=== PATIENT | female | born 1965 | race Caucasian/White ===

== ENCOUNTER 2016-11-06 23:19 | Inpatient (IN) | payer MEDICARE, OTHER ==
[~2016-11-06] VITALS: Ht 154.9 cm; Wt 91.7 kg
[~2016-11-06 23:19] MED LIST: ACID1TAB14 PO; ALPR0.5T PO; AMOX1TAB11 PO; ATOR20TA PO; BISM1BAN TP; BUSP10TA PO; CLON1TAB3; COLL30OI TP; CYCL10TA2 PO; DIAZ5TAB PO; DICY10CA53 PO; DULO30CA2 PO; ESCI20TA; FLUC100T7 PO; GABA-587 PO; GABA100C6; HYDR2TAB13 PO; IV NORMAL SALINE 1000ML BAG 1,000 ML IV SCH; LEVO25TA2 PO; LEVO50TA5; LITH300C; LORA1TAB PO; LOSA50TA2 PO; METH10TA2 PO; MORP15TA3 PO; NYST60PO TP; ONDA4TAB10 SL; OXYC15TA60; OXYC30TA64 PO; OXYC40TA21 PO; OXYC5TAB PO; PRAM0.25; PREG75CA PO; PROAIR HFA8.5 GM IH; QUET200T; RANI300T3 PO; SERT50TA8; TRAM50TA; VENL150T PO; ZALE10CA16 PO; ZOLP10TA4; ZOLP5TAB PO
--- NOTE | 2016-11-06 23:56 | PHYS DOC ---
Past Medical History Past Medical History: Pneumonia, Other Additional Past Medical Histor: Nonhogkins lymphoma, lumber fracture and skull fracture Past Surgical History: Appendectomy, Cholecystectomy, Tonsillectomy Additional Past Surgical Histo: laparoscapy, L. leg amputation,spikes in R.foot ,RT FEM/POP LYMPTH NODE BX Alcohol Use: None Drug Use: None Adult General Chief Complaint Chief Complaint: NAUSEA/VOMITING/DIARRHA HPI HPI Patient is a 51 year old female who presents with shortness of breath, diarrhea , abdominal pain. Patient reports her last 4-5 days she has been having shortness of breath, diarrhea, right lower quadrant pain, sore throat, problems with her memory. She reports frequent diarrhea, so much so that she is unable to get out of bed to get to the bathroom (so she has been sitting in her stool at home). She describes an aching right lower quadrant pain without clear inciting or mitigating factors. She is short of breath, but denies any chest discomfort. She has been taking amoxicillin home after being diagnosed with pneumonia. She has not taken anything for pain at home. Review of Systems Review of Systems Constitutional: Denies fever or chills Eyes: Denies change in visual acuity or eye pain HENT: Sore throat Respiratory: Shortness of breath Cardiovascular: Denies chest pain GI: RLQ pain, nausea, diarrhea. Denies vomiting, bloody stools : Denies dysuria or hematuria Musculoskeletal: Denies back pain or joint pain Integument: Denies rash or skin lesions Neurologic: Memory problems. Denies headache, focal weakness or sensory changes Current Medications Current Medications Current Medications Medications (Trade) Dose Ordered Sig/Alda Start Time Stop Time Status Last Admin Dose Admin Famotidine (Pepcid) 20 mg 1X ONCE 11/07/16 00:15 11/07/16 00:16 DC 11/07/16 01:37 20 MG Info (Do NOT chart on this entry -- for MONITORING) 1 each PRN DAILY PRN 11/07/16 02:00 11/09/16 01:59 Iohexol 60 ml 60 ml 1X ONCE 11/07/16 01:45 11/07/16 01:46 DC Morphine Sulfate 4 mg 1X ONCE 11/07/16 00:15 11/07/16 00:16 DC 11/07/16 01:37 4 MG Ondansetron HCl (Zofran) 4 mg 1X ONCE 11/07/16 00:15 11/07/16 00:16 DC 11/07/16 01:37 4 MG Sodium Chloride (Iv Sodium Chloride 0.9% 1000ml Bag) 1,000 ml @ 1,000 mls/hr 1X ONCE 11/07/16 01:45 11/07/16 02:44 DC 11/07/16 01:46 1,000 MLS/HR Allergies Allergies Allergies Coded Allergies Type Severity Reaction Last Updated Verified acetaminophen Allergy Intermediate Itching 10/02/16 Yes doxycycline Allergy Intermediate Itching 02/02/14 Yes Physical Exam Physical Exam Constitutional: Well developed, well nourished, no acute distress, non-toxic appearance HENT: Normocephalic, atraumatic, bilateral external ears normal Eyes: EOMI, conjunctiva normal, no discharge Neck: Normal range of motion, no stridor Cardiovascular: Tachycardic, regular rhythm, no murmur Lungs & Thorax: Bilateral breath sounds clear to auscultation Abdomen: Bowel sounds normal, soft, non-distended, RLQ TTP without guarding or rebound Groin: R groin without significant erythema or warmth to touch Skin: Warm, dry, no erythema, no rash Extremities: L AKA noted, L hand paralyzed (baseline) Neurologic: Alert and oriented X 3 Current Patient Data Vital Signs Vital Signs Date Time Temp Pulse Resp B/P Pulse Ox O2 Delivery O2 Flow Rate FiO2 11/07/16 01:37 98 Room Air 11/06/16 23:25 98.3 104 12 118/71 98.3 Lab Values Laboratory Tests Test 11/06/16 01:33 11/07/16 00:20 Urine Collection Type U cath Urine Color Yellow Urine Clarity Clear Urine pH 6.0 Urine Specific [place] 1.020 Urine Protein Negativemg/dL (NEG-TRACE) Urine Glucose (UA) Negativemg/dL (NEG) Urine Ketones (Stick) Negativemg/dL (NEG) Urine Blood Small (NEG) Urine Nitrite Negative (NEG) Urine Bilirubin Negative (NEG) Urine Urobilinogen Dipstick 0.2mg/dL (0.2 mg/dL) Urine Leukocyte Esterase Small (NEG) Urine RBC 3-5/HPF (0-2) Urine WBC 5-10/HPF (0-4) Urine Squamous Epithelial Cells Few/LPF Urine Bacteria 0/HPF (0-FEW) Urine Mucus Mod/LPF White Blood Count 4.8x10^3/uL (4.0-11.0) Red Blood Count 4.03x10^6/uL (3.50-5.40) Hemoglobin 12.1g/dL (12.0-15.5) Hematocrit 37.0% (36.0-47.0) Mean Corpuscular Volume 92fL (79-100) Mean Corpuscular Hemoglobin 30pg (25-35) Mean Corpuscular Hemoglobin Concent 33g/dL (31-37) Red Cell Distribution Width 14.9% (11.5-14.5) H Platelet Count 350x10^3/uL (140-400) Neutrophils (%) (Auto) 59% (31-73) Lymphocytes (%) (Auto) 21% (24-48) L Monocytes (%) (Auto) 15% (0-9) H Eosinophils (%) (Auto) 4% (0-3) H Basophils (%) (Auto) 2% (0-3) Neutrophils # (Auto) 2.8x10^3uL (1.8-7.7) Lymphocytes # (Auto) 1.0x10^3/uL (1.0-4.8) Monocytes # (Auto) 0.7x10^3/uL (0.0-1.1) Eosinophils # (Auto) 0.2x10^3/uL (0.0-0.7) Basophils # (Auto) 0.1x10^3/uL (0.0-0.2) Sodium Level 138mmol/L (136-145) Potassium Level 3.7mmol/L (3.5-5.1) Chloride Level 104mmol/L (98-107) Carbon Dioxide Level 30mmol/L (21-32) Anion Gap 4 (6-14) L Blood Urea Nitrogen 8mg/dL (7-20) Creatinine 1.1mg/dL (0.6-1.0) H Estimated GFR (Cockcroft-Gault) 52.2 BUN/Creatinine Ratio 7 (6-20) Glucose Level 97mg/dL (70-99) Calcium Level 9.3mg/dL (8.5-10.1) Total Bilirubin 0.2mg/dL (0.2-1.0) Aspartate Amino Transferase (AST) 45U/L (15-37) H Alanine Aminotransferase (ALT) 46U/L (14-59) Alkaline Phosphatase 125U/L (46-116) H Troponin I Quantitative < 0.017ng/mL (0.000-0.055) Total Protein 7.5g/dL (6.4-8.2) Albumin 2.9g/dL (3.4-5.0) L Albumin/Globulin Ratio 0.6 (1.0-1.7) L Lipase 54U/L (73-393) L Laboratory Tests 11/07/16 00:20 Laboratory Tests 11/07/16 00:20 EKG EKG EKG (my read): sinus rhythm, rate 98, normal axis, intervals wnl, no acute ischemic changes Radiology/Procedures Radiology/Procedures CT A/P: IMPRESSION 1. Soft tissue density within the right inguinal region surrounding multiple vascular closure devices or surgical clips and a small focus of gas. This suggests inflammation or scar/granulation tissue from recent catheterization. No drainable fluid collection is seen. However, the possibility of superimposed infection is not excluded given multiple prominent surrounding inguinal lymph nodes. 2. 1 cm round region of stranding adjacent to the mid sigmoid colon, possibly due to the sequela of prior epiploic appendagitis. 3. 7 mm left lower lobe pulmonary nodule, not seen on the prior study. Followup according to Fleischner society criteria. 4. Small fat containing supraumbilical hernias. 5. Note is made that the appendix is not well seen. CXR (my read): No significant change from prior 10/21/16 Course & Med Decision Making Course & Med Decision Making Pertinent Labs and Imaging studies reviewed. (See chart for details) Patient is 51-year-old female who presents with abdominal pain, diarrhea, shortness of breath. Will check labs, UA, CT abdomen/pelvis, C. difficile test. IV fluids, pain meds, nausea meds ordered for relief of symptoms. EKG and chest x-ray okay per my read. Labs largely unremarkable. CT results as above; although there is inflammation in the right groin, patient does not have fever or leukocytosis. Physical exam shows no gross signs of infection, so will not give antibiotics at this time. Discussed results with patient. Discussed with Dr. Toledo (covering for Dr. Zayas). Will admit under his care for further evaluation and treatment. Surgical consultation entered. Dragon Disclaimer Dragon Disclaimer This electronic medical record was generated, in whole or in part, using a voice recognition dictation system. Departure Departure Impression: Primary Impression: Abdominal pain Additional Impression: Diarrhea Disposition: 09 ADMITTED INPATIENT Admitting Physician: Tej Toledo Condition: STABLE Referrals: LENA ZAYAS MD (PCP) Problem Qualifiers SAAD FOSTER MD Nov 06, 2016 23:56
[2016-11-07] MEDS ORDERED: MORPHINE SULFATE 4 MG/ML DISP.SYRIN. IV ONE ×2 (00:15→04:00)
[2016-11-07] MEDS ORDERED: FAMOTIDINE 20 MG/2 ML VIAL IVP ONE (00:15)
[2016-11-07] MEDS ORDERED: ONDANSETRON PF 4 MG/2 ML VIAL. IV ONE (00:15)
[2016-11-07 00:30] LABS: BASO # 0.1 x10^3/uL (0.0-0.2); BASO % 2 % (0-3); EOS % 4 % (0-3); HEMOGLOBIN 12.1 g/dL (12.0-15.5); LYMPH % 21 % (24-48); MEAN CORPUSCULAR HEMOGLOBIN 30 pg (25-35); MEAN CORPUSCULAR HGB CONC 33 g/dL (31-37); MEAN CORPUSCULAR VOLUME 92 fL (79-100); MONO % 15 % (0-9); NEUT % 59 % (31-73); PLATELET COUNT 350 x10^3/uL (140-400); RED BLOOD COUNT 4.03 x10^6/uL (3.50-5.40); RED CELL DISTRIBUTION WIDTH 14.9 % (11.5-14.5); WHITE BLOOD COUNT 4.8 x10^3/uL (4.0-11.0)
[2016-11-07 00:40] LABS: CALCIUM 9.3 mg/dL (8.5-10.1); CREATININE 1.1 mg/dL (0.6-1.0); GFR 52.2; POTASSIUM 3.7 mmol/L (3.5-5.1)
[2016-11-07 00:46] LABS: ALBUMIN 2.9 g/dL (3.4-5.0); ALBUMIN/GLOBULIN RATIO 0.6 (1.0-1.7); TOTAL BILIRUBIN 0.2 mg/dL (0.2-1.0); TOTAL PROTEIN 7.5 g/dL (6.4-8.2)
[2016-11-07 01:43] LABS: BILIRUBIN,URINE NEGATIVE (NEG); GLUCOSE,URINE NEGATIVE (NEG); NITRITE,URINE NEGATIVE (NEG); PROTEIN,URINE NEGATIVE (NEG-TRACE); UROBILINOGEN,URINE 0.2 mg/dL (0.2 mg/dL)
[2016-11-07] MEDS: IOHEXOL 300 MG/ML 100ML VIAL. IV ONE ×2 (01:45→01:49)
[2016-11-07] MEDS ORDERED: IV NORMAL SALINE 1000ML BAG 1,000 ML IV ONE (01:45)
[2016-11-07 01:50] LABS: BACTERIA,URINE 0 /HPF (0-FEW); SQUAMOUS EPITHELIAL CELL,UR FEW /LPF
[2016-11-07] MEDS ORDERED: CONTRAST GIVEN MC PRN (02:00)
--- NOTE | 2016-11-07 02:33 | RAD ---
PROCEDURE Abdomen and pelvis CT without contrast. HISTORY Right lower quadrant pain. TECHNIQUE Computed tomographic images of the abdomen pelvis were obtained without contrast. One or more of the following individualized dose reduction techniques were utilized for this examination: 1. Automated exposure control; 2. Adjustment of the mA and/or kV according to patient size; 3. Use of iterative reconstruction technique. COMPARISON 05/31/2016. FINDINGS Evaluation of the lower thorax demonstrates a 7 mm left lower lobe pulmonary nodule, not seen on the prior study. There is no infiltrate or effusion. No hepatic lesion is seen. The gallbladder is surgically absent. The pancreas, spleen, adrenal glands and kidneys are unremarkable. There is a rounded 1 cm region of fatty stranding adjacent to the mid sigmoid colon, possibly due to the sequela of epiploic appendagitis. The uterus is unremarkable. There is a 1.9 cm soft tissue structure within the right lower quadrant which appears separate from bowel and is likely a lymph node. There are also enlarged right inguinal lymph nodes surrounding suspected scarring or granulation tissue and multiple vascular closure clips or surgical clips. There is a superimposed small focus of gas within this location likely due to relative recent instrumentation. No drainable fluid collection is seen. There are small supraumbilical fat containing hernias. No pathologically enlarged lymph node is seen. There is a generator within the right buttock with lead extending cephalad from the field of view. There is degenerative change within the thoracolumbar spine and there are multiple healed left rib fractures. IMPRESSION 1. Soft tissue density within the right inguinal region surrounding multiple vascular closure devices or surgical clips and a small focus of gas. This suggests inflammation or scar/granulation tissue from recent catheterization. No drainable fluid collection is seen. However, the possibility of superimposed infection is not excluded given multiple prominent surrounding inguinal lymph nodes. 2. 1 cm round region of stranding adjacent to the mid sigmoid colon, possibly due to the sequela of prior epiploic appendagitis. 3. 7 mm left lower lobe pulmonary nodule, not seen on the prior study. Followup according to Fleischner society criteria. 4. Small fat containing supraumbilical hernias. 5. Note is made that the appendix is not well seen. Electronically signed by: Luann Hargrove (Nov 07, 2016 02:30:03)
[2016-11-07] MEDS ORDERED: ONDANSETRON PF 4 MG/2 ML VIAL. IV PRN (04:00)
[2016-11-07] MEDS ORDERED: MORPHINE SULFATE 4 MG/ML DISP.SYRIN. IV PRN (04:00)
[2016-11-07 04:53] VITALS: BP 164/74
--- NOTE | 2016-11-07 06:45 | EKG ---
[facility] [address] [place] [address] Test Date: 2016-11-07 Test Time: 00:03:59 Pat Name: CORI ZUNIGA Department: Room: [facility] Gender: F Set Decorator: : 1965 Requested By: SAAD FOSTRE Order Number: [id number] Reading MD: Zuleima Gage Measurements Intervals [place] Rate: 98 P: 42 AR: 158 QRS: 35 QRSD: 88 T: 29 QT: 352 QTc: 451 Interpretive Statements SINUS RHYTHM NORMAL EKG Electronically Signed On 11-08-2016 0:28:30 [employer] SHE[employer]ING [employer] by Zuleima Gage
[2016-11-07 07:00] VITALS: BP 85/59
[2016-11-07] MEDS ORDERED: ONDANSETRON ODT 4 MG TAB.RAPDIS PO PRN (07:45)
--- NOTE | 2016-11-07 07:50 | PDOC ---
Provider Note Provider Note [id number] AGNES FOSTER MD Nov 07, 2016 07:50
--- NOTE | 2016-11-07 07:53 | RAD ---
Indication shortness of breath. A single view of the chest was obtained and is compared to an examination 10/21/2016. The heart and pulmonary vessels are within normal limits and unchanged. A focal infiltrate is not seen. Significant pleural fluid is not present. There is no pneumothorax. Neuro stimulating device is noted. A significant change in the appearance of the chest compared to the prior exam is not seen. IMPRESSION: No acute or focal process. No significant change
[2016-11-07] MEDS: NYSTATIN TOPICAL POWDER 15GM BOTTLE. TP SCH ×2 (09:00→20:37)
[2016-11-07] MEDS ORDERED: GABAPENTIN 400 MG CAPSULE. PO SCH (09:00)
[2016-11-07] MEDS ORDERED: LOSARTAN POTASSIUM 50 MG TABLET. PO SCH (09:00)
[2016-11-07] MEDS: FAMOTIDINE 20 MG TABLET. PO SCH ×2 (09:19→20:37)
[2016-11-07] MEDS: METRONIDAZOLE 500 MG TABLET. PO SCH ×4 (09:19→20:45)
[2016-11-07] MEDS: OXYCODONE ER 40 MG TAB.ER.12H. PO SCH ×2 (09:20→20:42)
[2016-11-07] MEDS: PREGABALIN 75 MG CAPSULE PO SCH ×3 (09:21→20:42)
[2016-11-07] MEDS: DULOXETINE HCL 30 MG CAPSULE.DR. PO SCH (09:21)
[2016-11-07] MEDS: busPIRone 10 MG TABLET. PO SCH ×3 (09:21→20:37)
[2016-11-07] MEDS: POTASSIUM CL 20MEQ D5-0.45NACL 1,000 ML IV SCH ×2 (09:26→20:44)
--- NOTE | 2016-11-07 09:48 | HP ---
ADMIT DATE: CHIEF COMPLAINT: Vomiting and diarrhea. HISTORY OF PRESENT ILLNESS: A 51-year-old white female who has been the hospital about 5 days after a prolonged stay for right inguinal area cellulitis and lymph drainage after a biopsy. This required catheter drainage and ultimately catheter was removed and she went home on Augmentin. About 2 days prior to this admission, she developed nausea, vomiting, and diarrhea of nonbloody in nature without obvious fever or any other specific symptoms. CT scan of the abdomen was unremarkable on admission. C. diff toxin is pending at this time. PAST MEDICAL HISTORY: Well documented in old records. MEDICATIONS: Multiple medications listed per the chart. ALLERGIES: DOXYCYCLINE noted. SOCIAL HISTORY: Lives at home and is , nonsmoker, nondrinker to my knowledge and is not employed. FAMILY HISTORY: Unremarkable. REVIEW OF SYSTEMS: No other known problems. OBJECTIVE: ENT: No jaundice. Pharynx clear. Mucosa appeared to be moist. NECK: Revealed no carotid bruits, nodes, or thyroid enlargement. LUNGS: Clear, without tachypnea. CARDIOVASCULAR: Regular rate. No irregular beat or tachycardia. ABDOMEN: Obese, diffusely mildly tender. No guarding or rebound or masses felt. EXTREMITIES: Right inguinal area appears same as last exam, mild edema at the ankles, good pedal pulses. The left arm has reduced pulse consistent with complex regional pain syndrome, otherwise unremarkable. NEUROLOGIC: Very sleepy for medication, nonfocal. No overt neurologic findings. Gait was not tested. Cranial nerves appear to be intact. ASSESSMENT: Ongoing nausea, vomiting, and diarrhea while taking Augmentin after a prolonged IV antibiotic course in the hospital. Suspect this is either antibiotic-associated colitis or just Augmentin diarrhea as most likely diagnoses. PLAN: We will hold Augmentin and Flagyl pending C. diff toxin. IV fluids, bowel rest, and continue most medications same. AGNES FOSTER MD DR: EDEN/jordan JOB#: [id number] / [id number]
[2016-11-07 11:00] VITALS: BP 85/50
[2016-11-07] MEDS: LEVOTHYROXINE 50 MCG TABLET PO SCH (11:09)
[2016-11-07] MEDS: OXYCODONE IR 5 MG TABLET. PO PRN (13:43)
[2016-11-07 15:00] VITALS: BP 85/54
--- NOTE | 2016-11-07 16:01 | PDOC ---
Provider Note Provider Note SURG Carla is admitted with diarrhea. We are asked to see her for her hx of right groin cellulitis/seroma after a right inguinal LN biopsy 2/2 hx of lymphoma. The nodes were negative for neoplasia. Her percutaneously placed drain was removed by me in the office last week. Examine today does not suggest recurrent erythema, fluctuance or TTP. No acute surg recs Will follow as needed Thanks for letting us participate in her care BREANNA MERCADO MD Nov 07, 2016 16:01
[2016-11-07 19:49] VITALS: BP 100/61
[2016-11-07] MEDS: PRAMIPEXOLE 0.25 MG TABLET. PO SCH (20:37)
[2016-11-07] MEDS: ZOLPIDEM 5 MG TABLET. PO PRN (20:44)
[2016-11-07 22:35] VITALS: BP 95/65
[2016-11-08] MEDS: PREGABALIN 75 MG CAPSULE PO SCH ×4 (02:08→20:26)
[2016-11-08] MEDS: OXYCODONE IR 5 MG TABLET. PO PRN ×3 (02:08→21:31)
[2016-11-08 02:41] VITALS: BP 98/69
[2016-11-08 04:15] LABS: BASO # 0.1 x10^3/uL (0.0-0.2); BASO % 2 % (0-3); EOS % 5 % (0-3); HEMATOCRIT 37.5 % (36.0-47.0); HEMOGLOBIN 12.1 g/dL (12.0-15.5); LYMPH # 1.2 x10^3/uL (1.0-4.8); LYMPH % 38 % (24-48); MEAN CORPUSCULAR HEMOGLOBIN 30 pg (25-35); MEAN CORPUSCULAR HGB CONC 32 g/dL (31-37); MEAN CORPUSCULAR VOLUME 92 fL (79-100); MONO % 19 % (0-9); NEUT % 35 % (31-73); PLATELET COUNT 327 x10^3/uL (140-400); RED BLOOD COUNT 4.06 x10^6/uL (3.50-5.40); RED CELL DISTRIBUTION WIDTH 14.9 % (11.5-14.5)
[2016-11-08 04:34] LABS: CALCIUM 8.6 mg/dL (8.5-10.1); GFR 58.2; POTASSIUM 4.5 mmol/L (3.5-5.1)
[2016-11-08] MEDS: LEVOTHYROXINE 50 MCG TABLET PO SCH (06:36)
[2016-11-08 07:00] VITALS: BP 104/67
[2016-11-08] MEDS: IPRATRPIUM/ALBUTEROL 0.5/2.5MG 3 ML NEBU. NEB SCH ×4 (08:00→19:19)
--- NOTE | 2016-11-08 08:02 | PDOC ---
Provider Note Provider Note afeb, bp still low- diarhea gone off augmentin, c diff neg- now cough and diffuse wheezes, clear cxr/ is a smoker- will add solumedrol/ duoneb, culture sputum if available, hold po antibiotics for now as she was on augmentin whern cough developed- hold losartan re lower bp AGNES FOSTER MD Nov 08, 2016 08:01
[2016-11-08] MEDS: NYSTATIN TOPICAL POWDER 15GM BOTTLE. TP SCH ×2 (09:00→20:29)
[2016-11-08] MEDS: methylPREDNISolone SOD SUCC PF 40 MG/ML VIAL. IV SCH ×2 (09:01→20:29)
[2016-11-08] MEDS: FAMOTIDINE 20 MG TABLET. PO SCH ×2 (09:03→20:26)
[2016-11-08] MEDS: DULOXETINE HCL 30 MG CAPSULE.DR. PO SCH (09:03)
[2016-11-08] MEDS: busPIRone 10 MG TABLET. PO SCH ×3 (09:04→20:26)
[2016-11-08] MEDS: OXYCODONE ER 40 MG TAB.ER.12H. PO SCH ×2 (09:04→20:28)
--- NOTE | 2016-11-08 09:37 | ACF ---
Admission Forms Criteria ABDOMINAL PAIN Clinical Indications for Admission to Inpatient Care (Place 'X' for any and all applicable criteria): Admission is indicated for ANY ONE of the following(1)(2)(3)(4)(5): [ X]I. Inpatient admission required rather than observation care (Also use Abdominal Pain: Observation Care, as appropriate) because of ANY ONE of the following: [X ]a) Severe pain requiring acute inpatient management [X ]b) Identification of etiology/finding that requires inpatient care (eg, aortic dissection, free air) [ ]c) Absent bowel sounds with complete ileus(6) [ ]d) Suspected toxic megacolon [ ]e) Severe electrolyte abnormalities requiring inpatient care [ ]f) High fever or infection requiring inpatient admission as indicated by ANY ONE of following(7)(8): [ ] i) Appropriate outpatient or observational care antimicrobial treatment unavailable, not effective, or not feasible [ ] ii) Documented bacteremia [ ] iii) Temperature > 104.9 degrees F (oral) [ ] iv) T >103.1 F (oral) or < 96.8 F(rectal) that does not respond to all emergency treatment measures [ ]g) Signs of intestinal obstruction [B] [ ]h) Hemodynamic instability [ ]i) IV fluid to replace significant ongoing losses (greater than 3 L/m2 per day) (12)(13) [ ]j) Percutaneous or open drainage (eg, abscess, biliary tract ) procedures [ ]k) Parenteral nutrition regimen that must be implemented on inpatient basis [ ]l) Other condition,treatment or monitoring requiring inpatient admission. [ ]II. Peritoneal signs present [ ]III. Surgery needed that cannot be performed on an ambulatory basis. [ ]IV. Evaluation requires patient to not eat or drink for extended period ( eg, more than 24 hours). [ ]V. Contraindications and/or Inappropriate clinical situations for Observational Care in patients with abdominal pain, when ANY ONE of the following is required: [ ]a) Thorough evaluation is required to prevent catastrophic events due to delays in diagnosing (e.g.Mesenteric ischemia) 1,3 [ ]b) Patient with severe pathology or with chronic symptoms unlikely to improve in the ED stay (3) [ ]. General contraindications and/or Inappropriate clinical situations for Observational Care in patients with abdominal pain, when ANY ONE of the following is required: [ ]a) Prediction of prolongation of LOS based on ANY ONE of the following may be considered as a contraindication for observational care 2, 3, 4, 5, 6, 7, 8, 9, 10, 11 [ ]i) Age > 65 yrs. [ ]ii) Patient arriving by ambulance [ ]iii) Patient with high acuity [ ]iv) Patient requiring vital sign monitoring [ ]v) Patient on IV medication [ ]b) Systolic blood pressures 180mmHg 3,12 [ ]c) Patient with altered mental status including delirium and other alteration of consciousness, (3) [ ]d) Patient whose discharge disposition will be to a care home home or rehabilitation home should not be managed in Emergency Department Observation Unit. CMS rule requires 3 days hospital stay before such placement.3,13 [ ]e) Patient with failure to thrive due to broad array of etiologies 3,16,17 [ ]f) Inability to ambulate 3,14 Extended stay beyond goal length of stay may be needed for(2)(3): [ ]a) Persistent abdominal pain with suspected intra-abdominal process [ ]b) Diagnosed condition requiring continued stay (e.g., pancreatitis, complicated diverticulitis) [ ]c) Surgery (e.g., colectomy) The original [facility] content created by [employer] has been revised. The portions of the content which have been revised are identified through the use of italic text or in bold, and [facility] has neither reviewed nor approved the modified material.All other unmodified content is copyright [employer]. Please see references footnoted in the original [facility] edition 2016 Admission Criteria Met?: Yes DESI PRADHAN Nov 08, 2016 09:37
[2016-11-08 11:00] VITALS: BP 98/75
[2016-11-08] MEDS: ALPRAZOLAM 0.5 MG TABLET PO PRN ×2 (13:24→20:26)
[2016-11-08 15:00] VITALS: BP 132/86
[2016-11-08 19:40] VITALS: BP 154/89
[2016-11-08] MEDS: PRAMIPEXOLE 0.25 MG TABLET. PO SCH (20:26)
[2016-11-08] MEDS: ZOLPIDEM 5 MG TABLET. PO PRN (21:31)
[2016-11-08 22:40] VITALS: BP 115/72
[2016-11-08] MEDS: BENZONATATE 100 MG CAPSULE. PO SCH (23:16)
[2016-11-09 03:00] VITALS: BP 128/82
[2016-11-09] MEDS: IPRATRPIUM/ALBUTEROL 0.5/2.5MG 3 ML NEBU. NEB SCH ×4 (06:08→20:09)
[2016-11-09] MEDS: OXYCODONE IR 5 MG TABLET. PO PRN ×3 (06:17→22:20)
[2016-11-09] MEDS: LEVOTHYROXINE 50 MCG TABLET PO SCH (06:17)
[2016-11-09 07:05] VITALS: BP 137/89
[2016-11-09] MEDS: NYSTATIN TOPICAL POWDER 15GM BOTTLE. TP SCH ×2 (09:00→21:06)
[2016-11-09] MEDS: FAMOTIDINE 20 MG TABLET. PO SCH ×2 (09:13→21:05)
[2016-11-09] MEDS: busPIRone 10 MG TABLET. PO SCH ×3 (09:13→21:05)
[2016-11-09] MEDS: BENZONATATE 100 MG CAPSULE. PO SCH ×3 (09:14→21:05)
[2016-11-09] MEDS: DULOXETINE HCL 30 MG CAPSULE.DR. PO SCH (09:14)
[2016-11-09] MEDS: OXYCODONE ER 40 MG TAB.ER.12H. PO SCH ×2 (09:14→21:05)
[2016-11-09] MEDS: methylPREDNISolone SOD SUCC PF 40 MG/ML VIAL. IV SCH ×2 (09:15→21:05)
[2016-11-09] MEDS: PREGABALIN 75 MG CAPSULE PO SCH ×3 (09:15→21:06)
--- NOTE | 2016-11-09 09:20 | PDOC ---
SUBJECTIVE Subjective c/o urinary frequency, cough, less SOB, no fever OBJECTIVE Objective no wheezing, VSS Vital Signs Vital Signs Date Time Temp Pulse Resp B/P Pulse Ox O2 Delivery O2 Flow Rate FiO2 11/09/16 08:08 18 94 Room Air 11/09/16 07:05 97.9 75 18 137/89 94 Room Air 97.9 11/09/16 06:17 Room Air 11/09/16 06:08 98 Room Air 11/09/16 03:00 98.1 78 18 128/82 94 98.1 11/09/16 00:28 Room Air 11/08/16 22:40 98.1 109 18 115/72 96 Room Air 98.1 11/08/16 21:31 Room Air 11/08/16 20:28 Room Air 11/08/16 20:00 Room Air 11/08/16 19:40 98.3 79 20 154/89 96 Room Air 98.3 11/08/16 19:19 98 Room Air 11/08/16 16:38 Room Air 11/08/16 15:00 97.8 78 20 132/86 97 Room Air 97.8 11/08/16 14:49 97 11/08/16 13:26 97 Room Air 11/08/16 12:19 97 Room Air 11/08/16 11:00 98.0 76 20 98/75 96 Room Air 98.0 I & O Intake and Output 11/09/16 07:00 Intake Total 600 ml Output Total 1350 ml Balance -750 ml Intake Oral 600 ml Output Urine Total 1350 ml PHYSICAL EXAM Physical Exam lungs clear today heart RRR abd soft ext no edema R groin area clean and clear ASSESSMENT/PLAN Assessment/Plan breathing better , continue steroids, urinary frequency will check U/A , Problems: LENA ZAYAS MD Nov 09, 2016 09:20
[2016-11-09 10:22] LABS: BILIRUBIN,URINE NEGATIVE (NEG); GLUCOSE,URINE NEGATIVE (NEG); NITRITE,URINE NEGATIVE (NEG); PROTEIN,URINE NEGATIVE (NEG-TRACE); UROBILINOGEN,URINE 0.2 mg/dL (0.2 mg/dL)
[2016-11-09 10:39] LABS: BACTERIA,URINE FEW /HPF (0-FEW); SQUAMOUS EPITHELIAL CELL,UR FEW /LPF
[2016-11-09 11:07] VITALS: BP 122/81
[2016-11-09 14:46] VITALS: BP 146/95
[2016-11-09] MEDS: ALPRAZOLAM 0.5 MG TABLET PO PRN ×3 (16:31→22:20)
--- NOTE | 2016-11-09 18:17 | PDOC ---
PULMONARY PROGRESS NOTES Vitals Vital Signs Date Time Temp Pulse Resp B/P Pulse Ox O2 Delivery O2 Flow Rate FiO2 11/09/16 16:32 95 Room Air 11/09/16 14:46 97.3 88 18 146/95 97.3 Lungs: Clear Cardiovascular: S1, S2 Labs Laboratory Tests Test 11/08/16 04:05 11/09/16 10:06 White Blood Count 3.0x10^3/uL (4.0-11.0) Red Blood Count 4.06x10^6/uL (3.50-5.40) Hemoglobin 12.1g/dL (12.0-15.5) Hematocrit 37.5% (36.0-47.0) Mean Corpuscular Volume 92fL (79-100) Mean Corpuscular Hemoglobin 30pg (25-35) Mean Corpuscular Hemoglobin Concent 32g/dL (31-37) Red Cell Distribution Width 14.9% (11.5-14.5) Platelet Count 327x10^3/uL (140-400) Neutrophils (%) (Auto) 35% (31-73) Lymphocytes (%) (Auto) 38% (24-48) Monocytes (%) (Auto) 19% (0-9) Eosinophils (%) (Auto) 5% (0-3) Basophils (%) (Auto) 2% (0-3) Neutrophils # (Auto) 1.1x10^3uL (1.8-7.7) Lymphocytes # (Auto) 1.2x10^3/uL (1.0-4.8) Monocytes # (Auto) 0.6x10^3/uL (0.0-1.1) Eosinophils # (Auto) 0.2x10^3/uL (0.0-0.7) Basophils # (Auto) 0.1x10^3/uL (0.0-0.2) Sodium Level 142mmol/L (136-145) Potassium Level 4.5mmol/L (3.5-5.1) Chloride Level 107mmol/L (98-107) Carbon Dioxide Level 30mmol/L (21-32) Anion Gap 5 (6-14) Blood Urea Nitrogen 4mg/dL (7-20) Creatinine 1.0mg/dL (0.6-1.0) Estimated GFR (Cockcroft-Gault) 58.2 Glucose Level 103mg/dL (70-99) Calcium Level 8.6mg/dL (8.5-10.1) Urine Collection Type Unknown Urine Color Yellow Urine Clarity Clear Urine pH 7.0 Urine Specific [place] 1.015 Urine Protein Negativemg/dL (NEG-TRACE) Urine Glucose (UA) Negativemg/dL (NEG) Urine Ketones (Stick) Negativemg/dL (NEG) Urine Blood Small (NEG) Urine Nitrite Negative (NEG) Urine Bilirubin Negative (NEG) Urine Urobilinogen Dipstick 0.2mg/dL (0.2 mg/dL) Urine Leukocyte Esterase Negative (NEG) Urine RBC 11-20/HPF (0-2) Urine WBC 1-4/HPF (0-4) Urine Squamous Epithelial Cells Few/LPF Urine Bacteria Few/HPF (0-FEW) Urine Mucus Slight/LPF Laboratory Tests Test 11/09/16 10:06 Urine Collection Type Unknown Urine Color Yellow Urine Clarity Clear Urine pH 7.0 Urine Specific [place] 1.015 Urine Protein Negativemg/dL (NEG-TRACE) Urine Glucose (UA) Negativemg/dL (NEG) Urine Ketones (Stick) Negativemg/dL (NEG) Urine Blood Small (NEG) Urine Nitrite Negative (NEG) Urine Bilirubin Negative (NEG) Urine Urobilinogen Dipstick 0.2mg/dL (0.2 mg/dL) Urine Leukocyte Esterase Negative (NEG) Urine RBC 11-20/HPF (0-2) Urine WBC 1-4/HPF (0-4) Urine Squamous Epithelial Cells Few/LPF Urine Bacteria Few/HPF (0-FEW) Urine Mucus Slight/LPF Medications Active Scripts Medications Dose Route/Sig Days Date Category Nystop (Nystatin) 60 Gm Powder 1 Simone TP BID 10/31/16 Rx Diflucan (Fluconazole) 100 Mg Tablet 200 Mg PO DAILY 10/31/16 Rx Amox Tr-K Clv 875-125 Mg Tab (Amoxicillin/Potassium Clav) 1 Each Tablet 1 Tab PO BID 10/31/16 Rx Irina-Bid Caplet (Acidoph/L.bulg/Bif.b/S.thermop) 1 Each Tablet 1 Tab PO TIDWMEALS 10/31/16 Rx Zofran Odt (Ondansetron) 4 Mg Tab.rapdis 1 Tab SL Q8HRS 10/11/16 Rx Lyrica (Pregabalin) 75 Mg Capsule 150 Mg PO TID 30 10/07/16 Rx Oxycodone Hcl 5 Mg Tablet 15 Mg PO Q4-6HRS PRN 15 10/07/16 Rx Oxycontin (Oxycodone HCl) 40 Mg Tab.er.12h 40 Mg PO Q12HR 15 10/07/16 Rx Cozaar (Losartan Potassium) 50 Mg Tablet 100 Mg PO DAILY 30 10/07/16 Rx Gabapentin 400 Mg Capsule 800 Mg PO TID 30 10/07/16 Rx Cymbalta (Duloxetine Hcl) 30 Mg Capsule.dr 60 Mg PO DAILY 30 10/07/16 Rx Buspirone Hcl 10 Mg Tablet 10 Mg PO TID 30 10/07/16 Rx Bentyl (Dicyclomine Hcl) 10 Mg Capsule 1 Cap PO Q8HRS PRN 06/13/16 Rx Zantac (Ranitidine Hcl) 300 Mg Tablet 1 Tab PO QHS 06/13/16 Rx Levothyroxine Sodium 50 Mcg Tablet 01/11/16 Reported Clonazepam 1 Mg Tablet 01/11/16 Reported Tramadol Hcl 50 Mg Tablet 01/11/16 Reported Pramipexole Dihydrochloride (Pramipexole Di-Hcl) 0.25 Mg Tablet 01/11/16 Reported Quetiapine Fumarate 200 Mg Tablet 01/11/16 Reported [place] Carbonate 300 Mg Capsule 01/11/16 Reported Proair Hfa Inhaler (Albuterol Sulfate) 8.5 Gm Hfa.aer.ad 2 Puff IH PRN Q4-6HRS 07/11/14 Rx Xanax (Alprazolam) 0.5 Mg Tablet 0.5 Mg PO TID PRN PRN 05/24/14 Reported Venlafaxine Hcl Er (Venlafaxine Hcl) 150 Mg Tab.er.24 150 Mg PO DAILY 05/24/14 Reported Ambien (Zolpidem Tartrate) 5 Mg Tablet 5 Mg PO HS PRN 05/24/14 Reported Impression . pulmonary nodule will check a CT of chest SNOW GLEASON MD Nov 09, 2016 18:17
[2016-11-09 19:00] VITALS: BP 132/92
[2016-11-09] MEDS ORDERED: ALPRAZOLAM 0.5 MG TABLET PO ONE (19:00)
[2016-11-09] MEDS: ZOLPIDEM 5 MG TABLET. PO PRN (21:05)
[2016-11-09] MEDS: TAMSULOSIN 0.4 MG CAP.ER.24H. PO SCH (21:05)
[2016-11-09] MEDS: PRAMIPEXOLE 0.25 MG TABLET. PO SCH (21:05)
[2016-11-09 23:10] VITALS: BP 125/82
[2016-11-10 02:43] VITALS: BP 118/75
[2016-11-10] MEDS: ALPRAZOLAM 0.5 MG TABLET PO PRN ×3 (04:52→23:57)
[2016-11-10 05:21] LABS: HEMATOCRIT 39.8 % (36.0-47.0); HEMOGLOBIN 12.9 g/dL (12.0-15.5); RED BLOOD COUNT 4.32 x10^6/uL (3.50-5.40); RED CELL DISTRIBUTION WIDTH 15.2 % (11.5-14.5); WHITE BLOOD COUNT 6.9 x10^3/uL (4.0-11.0)
[2016-11-10 05:59] LABS: CALCIUM 9.1 mg/dL (8.5-10.1); CREATININE 0.8 mg/dL (0.6-1.0); GFR 75.3
[2016-11-10 06:00] LABS: POTASSIUM 5.1 mmol/L (3.5-5.1)
[2016-11-10] MEDS: LEVOTHYROXINE 50 MCG TABLET PO SCH (06:25)
[2016-11-10] MEDS: OXYCODONE IR 5 MG TABLET. PO PRN ×3 (06:26→23:57)
[2016-11-10 07:00] VITALS: BP 128/91
[2016-11-10] MEDS: IPRATRPIUM/ALBUTEROL 0.5/2.5MG 3 ML NEBU. NEB SCH ×4 (07:23→19:58)
--- NOTE | 2016-11-10 08:47 | CONS ---
DATE OF CONSULTATION: 11/09/2016 ATTENDING PHYSICIAN: Dr. Tej Toledo. CONSULTING PHYSICIAN: Dr. Snow Woodruff. DATE OF SERVICE: 11/09/2016. REASON FOR CONSULTATION: The patient seen in pulmonary consultation at the request of Dr. Doan, for abnormal 7 mm pulmonary nodule. HISTORY OF PRESENT ILLNESS: The patient is a 51-year-old female that presented with vomiting and diarrhea. Part of her workup included a CT abdomen and pelvis. CT abdomen and pelvis revealed a 7 mm nodule which was not seen on prior exam of 05/31/2016. I was asked to see the patient in consultation. The patient smokes. She has had some acute bronchitis in the past. She denies hemoptysis. No fever, chills or night sweats. PAST MEDICAL HISTORY: Remarkable for previous pneumonia, non-Hodgkin's lymphoma. 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 PAST SURGICAL HISTORY: Status post appendectomy, cholecystectomy, tonsillectomy. MEDICATIONS: Current medication list was reviewed. Please see the MRAD. ALLERGIES: ACETAMINOPHEN and DOXYCYCLINE. SOCIAL HISTORY: She continues to smoke. FAMILY HISTORY: Mother of lung cancer. Father also had lung cancer. PHYSICAL EXAMINATION: VITAL SIGNS: Stable. O2 saturation was greater than 92%, currently on room air. HEENT: Eyes, the sclerae were nonicteric. NECK: Jugular venous distention was not elevated. No lymphadenopathy. CHEST: Full expansion. LUNGS: Adequate airway flow with no wheezes. CARDIOVASCULAR: Regular rate and rhythm with S1, S2, no S3. ABDOMEN: Soft, nontender, nondistended. EXTREMITIES: Evidence of previous leg amputation. LABORATORY DATA: Reviewed. White count was noted. Electrolytes were noted. CT of the abdomen report noted. IMPRESSION: 1. A 7 mm pulmonary nodule left lower lobe. 2. Ongoing tobacco dependent. 3. Underlying chronic obstructive pulmonary disease, unknown FEV1. 4. Lymph node biopsy positive for lymphoma. PLAN: 1. We will obtain CT of the chest review and make further recommendations. 2. We will obtain CT chest, we will review and make further recommendations. 3. The patient instructed on the importance of discontinuing her tobacco use. I do appreciate the privilege in sharing in the patient's care. SNOW WOODRUFF MD DR: JONY/jordan JOB#: [id number] / [id number] LENA Mendoza MD
[2016-11-10] MEDS: NYSTATIN TOPICAL POWDER 15GM BOTTLE. TP SCH ×2 (09:00→20:33)
[2016-11-10] MEDS: methylPREDNISolone SOD SUCC PF 40 MG/ML VIAL. IV SCH ×2 (09:07→20:32)
--- NOTE | 2016-11-10 09:07 | RAD ---
Indication follow-up pulmonary nodules. Noncontrast imaging through the chest was performed and is compared to an examination 05/01/2016. Imaging through the upper abdomen is unremarkable. There is a low-density area in the liver, near the dome. This is likely incidental and appears similar to the previous exam. There is mild adenopathy in the left axilla. This is similar to the previous exam. There are a few mediastinal lymph nodes. This too is similar to the previous exam. Definite pathologic hilar or mediastinal adenopathy is not seen. Occasional calcified left hilar lymph nodes are noted. There are healed left rib fractures. There are some underlying emphysematous changes. There is a nodule in the left lower lobe, image 196 series 3, unchanged. There is some new volume loss in the left lower lobe likely reflecting atelectasis or scar. There is a nodule in the right lung, image 142, appearing similar. A dominant parenchymal mass is not seen in either lung. IMPRESSION: Stable pulmonary nodules. Volume loss at the left lung base likely reflecting atelectasis or scar. Underlying emphysematous changes. PQRS Compliance Statement: One or more of the following individualized dose reduction techniques were utilized for this examination: 1. Automated exposure control 2. Adjustment of the mA and/or kV according to patient size 3. Use of iterative reconstruction technique
[2016-11-10] MEDS: FAMOTIDINE 20 MG TABLET. PO SCH ×2 (09:08→20:30)
[2016-11-10] MEDS: DULOXETINE HCL 30 MG CAPSULE.DR. PO SCH (09:08)
[2016-11-10] MEDS: busPIRone 10 MG TABLET. PO SCH ×3 (09:08→20:31)
[2016-11-10] MEDS: BENZONATATE 100 MG CAPSULE. PO SCH ×3 (09:08→20:31)
[2016-11-10] MEDS: PREGABALIN 75 MG CAPSULE PO SCH ×3 (09:08→20:31)
[2016-11-10] MEDS: OXYCODONE ER 40 MG TAB.ER.12H. PO SCH ×2 (09:09→20:31)
[2016-11-10 11:00] VITALS: BP 147/75
--- NOTE | 2016-11-10 13:33 | PDOC ---
PULMONARY PROGRESS NOTES Subjective PT NO INCREASE SOA Vitals Vital Signs Date Time Temp Pulse Resp B/P Pulse Ox O2 Delivery O2 Flow Rate FiO2 11/10/16 12:11 Room Air 11/10/16 11:00 97.6 79 18 147/75 96 97.6 Lungs: Clear Cardiovascular: S1, S2 Abdomen: Soft Neuro Exam: Alert Extremities: No Edema Skin: Warm Labs Laboratory Tests Test 11/09/16 10:06 11/10/16 04:40 Urine Collection Type Unknown Urine Color Yellow Urine Clarity Clear Urine pH 7.0 Urine Specific [place] 1.015 Urine Protein Negativemg/dL (NEG-TRACE) Urine Glucose (UA) Negativemg/dL (NEG) Urine Ketones (Stick) Negativemg/dL (NEG) Urine Blood Small (NEG) Urine Nitrite Negative (NEG) Urine Bilirubin Negative (NEG) Urine Urobilinogen Dipstick 0.2mg/dL (0.2 mg/dL) Urine Leukocyte Esterase Negative (NEG) Urine RBC 11-20/HPF (0-2) Urine WBC 1-4/HPF (0-4) Urine Squamous Epithelial Cells Few/LPF Urine Bacteria Few/HPF (0-FEW) Urine Mucus Slight/LPF White Blood Count 6.9x10^3/uL (4.0-11.0) Red Blood Count 4.32x10^6/uL (3.50-5.40) Hemoglobin 12.9g/dL (12.0-15.5) Hematocrit 39.8% (36.0-47.0) Mean Corpuscular Volume 92fL (79-100) Mean Corpuscular Hemoglobin 30pg (25-35) Mean Corpuscular Hemoglobin Concent 32g/dL (31-37) Red Cell Distribution Width 15.2% (11.5-14.5) Platelet Count 375x10^3/uL (140-400) Sodium Level 140mmol/L (136-145) Potassium Level 5.1mmol/L (3.5-5.1) Chloride Level 105mmol/L (98-107) Carbon Dioxide Level 24mmol/L (21-32) Anion Gap 11 (6-14) Blood Urea Nitrogen 17mg/dL (7-20) Creatinine 0.8mg/dL (0.6-1.0) Estimated GFR (Cockcroft-Gault) 75.3 Glucose Level 133mg/dL (70-99) Calcium Level 9.1mg/dL (8.5-10.1) Laboratory Tests Test 11/10/16 04:40 White Blood Count 6.9x10^3/uL (4.0-11.0) Red Blood Count 4.32x10^6/uL (3.50-5.40) Hemoglobin 12.9g/dL (12.0-15.5) Hematocrit 39.8% (36.0-47.0) Mean Corpuscular Volume 92fL (79-100) Mean Corpuscular Hemoglobin 30pg (25-35) Mean Corpuscular Hemoglobin Concent 32g/dL (31-37) Red Cell Distribution Width 15.2% (11.5-14.5) Platelet Count 375x10^3/uL (140-400) Sodium Level 140mmol/L (136-145) Potassium Level 5.1mmol/L (3.5-5.1) Chloride Level 105mmol/L (98-107) Carbon Dioxide Level 24mmol/L (21-32) Anion Gap 11 (6-14) Blood Urea Nitrogen 17mg/dL (7-20) Creatinine 0.8mg/dL (0.6-1.0) Estimated GFR (Cockcroft-Gault) 75.3 Glucose Level 133mg/dL (70-99) Calcium Level 9.1mg/dL (8.5-10.1) Medications Active Scripts Medications Dose Route/Sig Days Date Category Nystop (Nystatin) 60 Gm Powder 1 Simone TP BID 10/31/16 Rx Diflucan (Fluconazole) 100 Mg Tablet 200 Mg PO DAILY 10/31/16 Rx Amox Tr-K Clv 875-125 Mg Tab (Amoxicillin/Potassium Clav) 1 Each Tablet 1 Tab PO BID 10/31/16 Rx Irina-Bid Caplet (Acidoph/L.bulg/Bif.b/S.thermop) 1 Each Tablet 1 Tab PO TIDWMEALS 10/31/16 Rx Zofran Odt (Ondansetron) 4 Mg Tab.rapdis 1 Tab SL Q8HRS 10/11/16 Rx Lyrica (Pregabalin) 75 Mg Capsule 150 Mg PO TID 30 10/07/16 Rx Oxycodone Hcl 5 Mg Tablet 15 Mg PO Q4-6HRS PRN 15 10/07/16 Rx Oxycontin (Oxycodone HCl) 40 Mg Tab.er.12h 40 Mg PO Q12HR 15 10/07/16 Rx Cozaar (Losartan Potassium) 50 Mg Tablet 100 Mg PO DAILY 30 10/07/16 Rx Gabapentin 400 Mg Capsule 800 Mg PO TID 30 10/07/16 Rx Cymbalta (Duloxetine Hcl) 30 Mg Capsule.dr 60 Mg PO DAILY 30 10/07/16 Rx Buspirone Hcl 10 Mg Tablet 10 Mg PO TID 30 10/07/16 Rx Bentyl (Dicyclomine Hcl) 10 Mg Capsule 1 Cap PO Q8HRS PRN 06/13/16 Rx Zantac (Ranitidine Hcl) 300 Mg Tablet 1 Tab PO QHS 06/13/16 Rx Levothyroxine Sodium 50 Mcg Tablet 01/11/16 Reported Clonazepam 1 Mg Tablet 01/11/16 Reported Tramadol Hcl 50 Mg Tablet 01/11/16 Reported Pramipexole Dihydrochloride (Pramipexole Di-Hcl) 0.25 Mg Tablet 01/11/16 Reported Quetiapine Fumarate 200 Mg Tablet 01/11/16 Reported [place] Carbonate 300 Mg Capsule 01/11/16 Reported Proair Hfa Inhaler (Albuterol Sulfate) 8.5 Gm Hfa.aer.ad 2 Puff IH PRN Q4-6HRS 07/11/14 Rx Xanax (Alprazolam) 0.5 Mg Tablet 0.5 Mg PO TID PRN PRN 05/24/14 Reported Venlafaxine Hcl Er (Venlafaxine Hcl) 150 Mg Tab.er.24 150 Mg PO DAILY 05/24/14 Reported Ambien (Zolpidem Tartrate) 5 Mg Tablet 5 Mg PO HS PRN 05/24/14 Reported Impression . 1. A 7 mm pulmonary nodule left lower lobe. 2. Ongoing tobacco dependent. 3. Underlying chronic obstructive pulmonary disease, unknown FEV1. 4. Lymph node biopsy positive for lymphoma. IMPRESSION: Stable pulmonary nodules. Volume loss at the left lung base likely reflecting atelectasis or scar. Underlying emphysematous changes. Plan . FOLLOW UP IN OFFICE IN APRIL WITH A REPEAT CT OF CHEST OK TO SNOW XAVIER MD Nov 10, 2016 13:33
[2016-11-10 15:00] VITALS: BP 137/76
--- NOTE | 2016-11-10 17:29 | PDOC ---
SUBJECTIVE Subjective feels better, breathing better OBJECTIVE Vital Signs Vital Signs Date Time Temp Pulse Resp B/P Pulse Ox O2 Delivery O2 Flow Rate FiO2 11/10/16 15:49 Room Air 11/10/16 15:30 Room Air 11/10/16 15:00 97.5 86 18 137/76 93 97.5 11/10/16 13:00 Room Air 11/10/16 12:11 Room Air 11/10/16 11:00 97.6 79 18 147/75 96 97.6 11/10/16 09:09 Room Air 11/10/16 09:03 Room Air 11/10/16 08:06 Room Air 11/10/16 07:23 95 Room Air 11/10/16 07:00 97.6 75 18 128/91 94 97.6 11/10/16 06:26 Room Air 11/10/16 02:43 97.8 72 18 118/75 96 Room Air 97.8 11/09/16 23:10 98.0 79 17 125/82 95 Room Air 98.0 11/09/16 22:20 Room Air 11/09/16 21:05 Room Air 11/09/16 20:10 94 Room Air 11/09/16 20:00 Room Air 11/09/16 19:00 97.4 85 19 132/92 96 Room Air 97.4 I & O Intake and Output 11/10/16 07:00 Intake Total 1030 ml Output Total 1460 ml Balance -430 ml Intake Oral 1030 ml Output Urine Total 1460 ml # Bowel Movements 1 PHYSICAL EXAM Physical Exam less abd pain lungs no wheezing heart RRR ext no edema ASSESSMENT/PLAN Assessment/Plan CT chest noted stable pulmonary nodule, advised to quit smoking, home in AM Problems: COMMENT Lab Laboratory Tests Test 11/10/16 04:40 White Blood Count 6.9x10^3/uL (4.0-11.0) Red Blood Count 4.32x10^6/uL (3.50-5.40) Hemoglobin 12.9g/dL (12.0-15.5) Hematocrit 39.8% (36.0-47.0) Mean Corpuscular Volume 92fL (79-100) Mean Corpuscular Hemoglobin 30pg (25-35) Mean Corpuscular Hemoglobin Concent 32g/dL (31-37) Red Cell Distribution Width 15.2% (11.5-14.5) Platelet Count 375x10^3/uL (140-400) Sodium Level 140mmol/L (136-145) Potassium Level 5.1mmol/L (3.5-5.1) Chloride Level 105mmol/L (98-107) Carbon Dioxide Level 24mmol/L (21-32) Anion Gap 11 (6-14) Blood Urea Nitrogen 17mg/dL (7-20) Creatinine 0.8mg/dL (0.6-1.0) Estimated GFR (Cockcroft-Gault) 75.3 Glucose Level 133mg/dL (70-99) Calcium Level 9.1mg/dL (8.5-10.1) LENA ZAYAS MD Nov 10, 2016 17:29
--- NOTE | 2016-11-10 17:41 | PDOC3 ---
Discharge Summary* Date of Admission: Nov 07, 2016 Date of Discharge: Nov 11, 2016 Admitting Diagnosis Problems Medical Problems: (1) Abdominal pain Status: Acute (2) COPD (chronic obstructive pulmonary disease) Status: Acute (3) Diarrhea Status: Acute (4) Lung nodule Status: Acute (5) Nausea vomiting and diarrhea Status: Acute Final Diagnosis Problem (1) Abdominal pain/ nausea/Vomiting Status: Acute (2) COPD (chronic obstructive pulmonary disease) Status: Acute (3) Diarrhea due to medication Status: Acute (4) 7 mm Lung nodule LLL stable 6 month , need F/U in 6 month Status: Acute (5) Nausea vomiting and diarrhea (6) tobacco dependency advised to stop CONSULTS pulmonary [facility] Surgery Dr. Kelley Procedures CT abd and pelvis CT chest CXR Brief Hospital Course Ms. Mathew is a 51 old [sex] who presented with [ ] Disposition/Orders: D/C to Home CONDITION AT DISCHARGE: Improved, Stable Diet: Regular Scheduled Acidoph/L.bulg/Bif.b/S.thermop (Irina-Bid Caplet) 1 TAB PO TIDWMEALS Albuterol Sulfate (Proair Hfa Inhaler) 2 PUFF IH PRN Q4-6HRS Amoxicillin/Potassium Clav (Amox Tr-K Clv 875-125 Mg Tab) 1 TAB PO BID Buspirone Hcl (Buspirone Hcl) 10 MG PO TID Duloxetine Hcl (Cymbalta) 60 MG PO DAILY Fluconazole (Diflucan) 200 MG PO DAILY Gabapentin (Gabapentin) 800 MG PO TID Losartan Potassium (Cozaar) 100 MG PO DAILY Nystatin (Nystop) 1 ALEENA TP BID Ondansetron (Zofran Odt) 1 TAB SL Q8HRS Oxycodone Hcl (Oxycontin) 40 MG PO Q12HR Pregabalin (Lyrica) 150 MG PO TID Ranitidine Hcl (Zantac) 1 TAB PO QHS Venlafaxine Hcl (Venlafaxine Hcl Er) 150 MG PO DAILY (Reported) Scheduled PRN Alprazolam (Xanax) 0.5 MG PO TID PRN PRN PRN ANXIETY / AGITATION (Reported) Dicyclomine Hcl (Bentyl) 1 CAP PO Q8HRS PRN PRN Abdominal pain Oxycodone Hcl (Oxycodone Hcl) 15 MG PO Q4-6HRS PRN PRN BREAKTHROUGH PAIN (2nd Choice) Zolpidem Tartrate (Ambien) 5 MG PO HS PRN PRN INSOMNIA (Reported) Miscellaneous Medications Clonazepam (Clonazepam) (Reported) Levothyroxine Sodium (Levothyroxine Sodium) (Reported) [place] Carbonate ([place] Carbonate) (Reported) Pramipexole Di-Hcl (Pramipexole Dihydrochloride) (Reported) Quetiapine Fumarate (Quetiapine Fumarate) (Reported) Tramadol Hcl (Tramadol Hcl) (Reported) FOLLOW UP APPOINTMENT: office in 2 weeks Time Spent Total time spent with patient [] minutes for coordination of care, counseling, and education. LENA ZAYAS MD Nov 10, 2016 17:41
[2016-11-10 19:00] VITALS: BP 149/88
[2016-11-10] MEDS: TAMSULOSIN 0.4 MG CAP.ER.24H. PO SCH (20:30)
[2016-11-10] MEDS: PRAMIPEXOLE 0.25 MG TABLET. PO SCH (20:32)
[2016-11-10 22:54] VITALS: BP 149/82
[2016-11-11 02:59] VITALS: BP 153/88
[2016-11-11] MEDS: LEVOTHYROXINE 50 MCG TABLET PO SCH (06:28)
[2016-11-11 07:00] VITALS: BP 151/83
[2016-11-11] MEDS: IPRATRPIUM/ALBUTEROL 0.5/2.5MG 3 ML NEBU. NEB SCH ×5 (08:00→21:16)
[2016-11-11] MEDS: NYSTATIN TOPICAL POWDER 15GM BOTTLE. TP SCH ×2 (09:00→20:20)
[2016-11-11] MEDS: OXYCODONE IR 5 MG TABLET. PO PRN ×2 (10:35→20:21)
[2016-11-11] MEDS: PREGABALIN 75 MG CAPSULE PO SCH ×3 (10:35→20:21)
[2016-11-11] MEDS: busPIRone 10 MG TABLET. PO SCH ×3 (10:35→20:18)
[2016-11-11] MEDS: BENZONATATE 100 MG CAPSULE. PO SCH ×3 (10:35→20:21)
[2016-11-11] MEDS: DULOXETINE HCL 30 MG CAPSULE.DR. PO SCH (10:36)
[2016-11-11] MEDS: FAMOTIDINE 20 MG TABLET. PO SCH ×2 (10:36→20:19)
[2016-11-11] MEDS: OXYCODONE ER 40 MG TAB.ER.12H. PO SCH ×2 (10:36→20:20)
[2016-11-11] MEDS: methylPREDNISolone SOD SUCC PF 40 MG/ML VIAL. IV SCH ×2 (10:37→20:22)
[2016-11-11] MEDS: ALPRAZOLAM 0.5 MG TABLET PO PRN ×2 (10:44→20:20)
[2016-11-11 11:00] VITALS: BP 172/90
--- NOTE | 2016-11-11 14:12 | PDOC ---
SUBJECTIVE Subjective does not feel good, BYRNES, cough, tired all over, does not want to go home, diarrhea is better but still present OBJECTIVE Vital Signs Vital Signs Date Time Temp Pulse Resp B/P Pulse Ox O2 Delivery O2 Flow Rate FiO2 11/11/16 12:12 96 Room Air 11/11/16 11:47 97 Room Air 11/11/16 11:00 97.1 75 20 172/90 97 Room Air 97.1 11/11/16 10:36 94 Room Air 11/11/16 10:35 94 Room Air 11/11/16 08:00 Room Air 11/11/16 07:00 98.1 75 20 151/83 94 Room Air 98.1 11/11/16 02:59 97.9 74 21 153/88 93 Room Air 97.9 11/11/16 01:06 15 11/11/16 00:38 17 Room Air 11/10/16 23:57 19 94 Room Air 11/10/16 22:54 97.5 77 19 149/82 94 Room Air 97.5 11/10/16 20:31 20 94 Room Air 11/10/16 20:04 Room Air 11/10/16 20:00 94 Room Air 11/10/16 19:00 97.4 84 20 149/88 95 Room Air 97.4 11/10/16 15:49 Room Air 11/10/16 15:30 Room Air 11/10/16 15:00 97.5 86 18 137/76 93 97.5 I & O Intake and Output 11/11/16 07:00 Intake Total 1490 ml Output Total 1950 ml Balance -460 ml Intake Oral 1490 ml Output Urine Total 1450 ml Urine/Stool Mix 500 ml # Bowel Movements 1 PHYSICAL EXAM Physical Exam face flushed heart RRR lungs fairly clear heart RRR abd soft ext no edema ASSESSMENT/PLAN Assessment/Plan plan restart IVF, check flu titers, discussed CT chest neg, stool C.Diff neg, continue support , hold discharge till tomorrow Problems: LENA ZAYAS MD Nov 11, 2016 14:12
[2016-11-11 15:00] VITALS: BP 141/79
[2016-11-11] MEDS: IV DEXTROSE 5 %-0.45 % NACL 1,000 ML IV SCH (15:00)
[2016-11-11 16:50] LABS: OBC FLU VALID
[2016-11-11 19:18] VITALS: BP 149/90
[2016-11-11] MEDS: TAMSULOSIN 0.4 MG CAP.ER.24H. PO SCH (20:19)
[2016-11-11] MEDS: PRAMIPEXOLE 0.25 MG TABLET. PO SCH (20:19)
[2016-11-11 22:29] VITALS: BP 155/92
[2016-11-11] MEDS: ZOLPIDEM 5 MG TABLET. PO PRN (22:56)
[2016-11-11] MEDS: CHOLESTYRAMINE/ASPARTAME 4 GM PACKET PO SCH (22:57)
[2016-11-12 02:23] VITALS: BP 181/71
[2016-11-12] MEDS ORDERED: ALBUTEROL SULFATE 2.5 MG/3 ML NEBU. NEB PRN (02:30)
[2016-11-12] MEDS: IV DEXTROSE 5 %-0.45 % NACL 1,000 ML IV SCH ×2 (02:52→15:25)
[2016-11-12] MEDS: ALPRAZOLAM 0.5 MG TABLET PO PRN ×2 (06:08→14:17)
[2016-11-12] MEDS: OXYCODONE IR 5 MG TABLET. PO PRN ×2 (06:08→14:17)
[2016-11-12] MEDS: LEVOTHYROXINE 50 MCG TABLET PO SCH (06:09)
[2016-11-12 06:46] LABS: HEMATOCRIT 40.7 % (36.0-47.0); HEMOGLOBIN 13.5 g/dL (12.0-15.5); RED BLOOD COUNT 4.54 x10^6/uL (3.50-5.40); RED CELL DISTRIBUTION WIDTH 14.7 % (11.5-14.5)
[2016-11-12 07:00] VITALS: BP 126/73
[2016-11-12 07:05] LABS: CALCIUM 8.7 mg/dL (8.5-10.1); CREATININE 0.8 mg/dL (0.6-1.0); GFR 75.3; POTASSIUM 4.6 mmol/L (3.5-5.1)
[2016-11-12] MEDS: methylPREDNISolone SOD SUCC PF 40 MG/ML VIAL. IV SCH (07:24)
[2016-11-12] MEDS: NYSTATIN TOPICAL POWDER 15GM BOTTLE. TP SCH (09:00)
[2016-11-12] MEDS: PREGABALIN 75 MG CAPSULE PO SCH ×2 (09:07→14:17)
[2016-11-12] MEDS: CHOLESTYRAMINE/ASPARTAME 4 GM PACKET PO SCH (09:07)
[2016-11-12] MEDS: FAMOTIDINE 20 MG TABLET. PO SCH (09:07)
[2016-11-12] MEDS: DULOXETINE HCL 30 MG CAPSULE.DR. PO SCH (09:07)
[2016-11-12] MEDS: BENZONATATE 100 MG CAPSULE. PO SCH ×2 (09:08→14:17)
[2016-11-12] MEDS: busPIRone 10 MG TABLET. PO SCH ×2 (09:08→14:17)
[2016-11-12] MEDS: OXYCODONE ER 40 MG TAB.ER.12H. PO SCH (09:08)
[2016-11-12 11:00] VITALS: BP 113/73
[2016-11-12] MEDS: IPRATRPIUM/ALBUTEROL 0.5/2.5MG 3 ML NEBU. NEB SCH ×2 (11:29→14:23)
[2016-11-12] MEDS ORDERED: AZIT250T PO (12:28)
[2016-11-12] MEDS ORDERED: IPRA3AMP NEB (12:39)
[2016-11-12] MEDS ORDERED: GUAI120L35 PO (12:39)
[2016-11-12] MEDS ORDERED: CHOL4POW11 PO (12:42)
--- NOTE | 2016-11-12 14:16 | PDOC ---
SUBJECTIVE Subjective flu is neg, diarrhea is better with questran, still some wheezing but generally better OBJECTIVE Objective VSS Vital Signs Vital Signs Date Time Temp Pulse Resp B/P Pulse Ox O2 Delivery O2 Flow Rate FiO2 11/12/16 13:40 95 Room Air 11/12/16 11:00 96.8 88 20 113/73 95 Room Air 96.8 11/12/16 09:08 94 Room Air 11/12/16 08:00 Room Air 11/12/16 07:21 94 Room Air 11/12/16 07:00 96.4 81 20 126/73 96 Room Air 96.4 11/12/16 02:54 Room Air 11/12/16 02:23 97.6 74 22 181/71 94 Room Air 97.6 11/11/16 22:29 97.7 76 20 155/92 96 Room Air 97.7 11/11/16 21:17 97 Room Air 11/11/16 20:21 Room Air 11/11/16 20:20 Room Air 11/11/16 20:00 Room Air 11/11/16 19:18 97.5 72 18 149/90 94 Room Air 97.5 11/11/16 15:00 97.9 70 20 141/79 94 Room Air 97.9 I & O Intake and Output 11/12/16 07:00 Intake Total 500 ml Output Total 1000 ml Balance -500 ml Intake Oral 500 ml Output Urine Total 1000 ml # Voids 3 PHYSICAL EXAM Physical Exam not much change ASSESSMENT/PLAN Assessment/Plan discussed lab, xray, CT chest with pt, agree to discharge home will arrange for pulmonaid machine , need HH for med compliance and PT Problems: COMMENT Lab Laboratory Tests Test 11/11/16 15:00 11/12/16 04:40 Influenza Type A Antigen Negative (NEGATIVE) Influenza Type B Antigen Negative (NEGATIVE) White Blood Count 6.0x10^3/uL (4.0-11.0) Red Blood Count 4.54x10^6/uL (3.50-5.40) Hemoglobin 13.5g/dL (12.0-15.5) Hematocrit 40.7% (36.0-47.0) Mean Corpuscular Volume 90fL (79-100) Mean Corpuscular Hemoglobin 30pg (25-35) Mean Corpuscular Hemoglobin Concent 33g/dL (31-37) Red Cell Distribution Width 14.7% (11.5-14.5) Platelet Count 413x10^3/uL (140-400) Sodium Level 137mmol/L (136-145) Potassium Level 4.6mmol/L (3.5-5.1) Chloride Level 104mmol/L (98-107) Carbon Dioxide Level 21mmol/L (21-32) Anion Gap 12 (6-14) Blood Urea Nitrogen 19mg/dL (7-20) Creatinine 0.8mg/dL (0.6-1.0) Estimated GFR (Cockcroft-Gault) 75.3 Glucose Level 119mg/dL (70-99) Calcium Level 8.7mg/dL (8.5-10.1) LENA ZAYAS MD Nov 12, 2016 14:16
[2016-11-12 15:00] VITALS: BP 147/84
== END 2016-11-12 18:30 | disposition home health service (06) | DRG 394 ==
LOC: ER 23:19 → 6 SOUTH 11-07 03:46
PROVIDERS: ADMIT Internal Medicine; ATTEND Internal Medicine
DX: K52.1 Toxic gastroenteritis and colitis (principal); C85.90 Non-Hodgkin lymphoma, unspecified, unspecified site; E44.0 Moderate protein-calorie malnutrition; F17.200 Nicotine dependence, unspecified, uncomplicated; Z90.49 Acquired absence of other specified parts of digestive tract; Z98.890 Other specified postprocedural states; Z80.1 Family history of malignant neoplasm of trachea, bronchus and lung; Z87.01 Personal history of pneumonia (recurrent); Z89.612 Acquired absence of left leg above knee; Z88.1 Allergy status to other antibiotic agents; Z79.899 Other long term (current) drug therapy; J44.9 Chronic obstructive pulmonary disease, unspecified
CPT/HCPCS: 36415; 71010; 71250; 74176; 80048; 80053; 81001; 83690; 84484; 85027; 87070; 87086; 87186; 87205; 87324; 87804; 93005; 94250; 94640; 94760; 96361; 96374; 96375; J2270; J2405; J2920; J7030; J7620; Q9967; S0028; 99285-25

== ENCOUNTER 2016-11-25 10:20 | Emergency (ER) | payer MEDICARE, OTHER ==
[~2016-11-25] VITALS: Ht 157.5 cm; Wt 78.0 kg
[~2016-11-25 10:20] MED LIST changes: +AZIT250T PO; +CHOL4POW11 PO; +GUAI120L35 PO; +IPRA3AMP NEB; -IV NORMAL SALINE 1000ML BAG 1,000 ML IV SCH
--- NOTE | 2016-11-25 10:38 | PHYS DOC ---
Past Medical History Past Medical History: Hypertension, Hyperthyroid, Pneumonia, Other Additional Past Medical Histor: Nonhogkins lymphoma, lumber fracture and skull fracture,TBI Past Surgical History: Appendectomy, Cholecystectomy, Tonsillectomy, Other Additional Past Surgical Histo: laparoscapy, L. 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 Patient denies any hematemesis or melena. She is also complaining of some dysuria. This patient was seen in the ED on November2016 for the same complaint, she was also seen in the ED sometime in October for similar complaints from taking antibiotics. Patient denies taking anti-antibiotics in the last 1 week. Review of Systems Review of Systems Constitutional: Denies fever or chills [] Eyes: Denies change in visual acuity, redness, or eye pain [] HENT: Denies nasal congestion or sore throat [] Respiratory: Denies cough or shortness of breath [] Cardiovascular: No additional information not addressed in HPI [] GI:abdominal pain, nausea, vomiting, diarrhea [] : See history of present illness Musculoskeletal: Denies back pain or joint pain [] Integument: Denies rash or skin lesions [] Neurologic: Denies headache, focal weakness or sensory changes [] Endocrine: Denies polyuria or polydipsia [] Current Medications Current Medications Current Medications Medications (Trade) Dose Ordered Sig/Alda Start Time Stop Time Status Last Admin Dose Admin Famotidine (Pepcid) 20 mg 1X ONCE 11/25/16 10:45 11/25/16 10:46 DC 11/25/16 11:10 20 MG Info (Do NOT chart on this entry -- for MONITORING) 1 each PRN DAILY PRN 11/25/16 12:30 11/27/16 12:29 Iohexol (Omnipaque 240 Mg/ml) 50 ml 1X ONCE 11/25/16 12:30 11/25/16 12:31 DC 11/25/16 12:28 50 ML Iohexol (Omnipaque 300 Mg/ml) 75 ml 1X ONCE 11/25/16 11:00 11/25/16 11:01 DC Morphine Sulfate 5 mg 1X ONCE 11/25/16 13:30 11/25/16 13:31 DC 11/25/16 13:44 5 MG Ondansetron HCl (Zofran) 4 mg 1X ONCE 11/25/16 10:45 11/25/16 10:46 DC 11/25/16 11:09 4 MG Sodium Chloride (Iv Sodium Chloride 0.9% 1000ml Bag) 1,000 ml @ 1,000 mls/hr 1X ONCE 11/25/16 10:45 11/25/16 11:44 DC 11/25/16 11:08 1,000 MLS/HR Allergies Allergies Allergies Coded Allergies Type Severity Reaction Last Updated Verified acetaminophen Allergy Intermediate Itching 10/02/16 Yes doxycycline Allergy Intermediate Itching 02/02/14 Yes Physical Exam Physical Exam Constitutional: Well developed, well nourished, no acute distress, non-toxic appearance. [] HENT: Normocephalic, atraumatic, bilateral external ears normal, oropharynx moist, no oral exudates, nose normal. [] Eyes: PERRLA, EOMI, conjunctiva normal, no discharge. [] Neck: Normal range of motion, no tenderness, supple, no stridor. [] Cardiovascular:Heart rate regular rhythm, no murmur [] Lungs & Thorax: Bilateral breath sounds clear to auscultation [] Abdomen: Rounded abdomen. Old healed surgical incision noted midline upper abdomen. Bowel sounds normal, soft, diffusely tender throughout the abdomen no point tenderness to the right lower right upper quadrant negative Doe's sign , negative obturator sign, negative psoas sign, no masses, no pulsatile masses. No guarding no rebound pain tenderness Skin: Warm, dry, no erythema, no rash. [] Back: No tenderness, no CVA tenderness. [] Extremities: Left lower extremity bisac-adu-nkld amputation left upper extremity also appears deformed with multiple surgical scars., Neurologic: Alert and oriented X 3, normal motor function, normal sensory function, no focal deficits noted. [] Psychologic: Affect normal, judgement normal, mood normal. [] Current Patient Data Vital Signs Vital Signs Date Time Temp Pulse Resp B/P Pulse Ox O2 Delivery O2 Flow Rate FiO2 11/25/16 13:44 24 98 Room Air 11/25/16 13:04 90 128/89 11/25/16 10:20 97.9 97.9 Lab Values Laboratory Tests Test 11/25/16 11:05 11/25/16 11:18 White Blood Count 8.8x10^3/uL (4.0-11.0) Red Blood Count 4.56x10^6/uL (3.50-5.40) Hemoglobin 13.6g/dL (12.0-15.5) Hematocrit 40.5% (36.0-47.0) Mean Corpuscular Volume 89fL (79-100) Mean Corpuscular Hemoglobin 30pg (25-35) Mean Corpuscular Hemoglobin Concent 34g/dL (31-37) Red Cell Distribution Width 14.8% (11.5-14.5) H Platelet Count 446x10^3/uL (140-400) H Neutrophils (%) (Auto) 60% (31-73) Lymphocytes (%) (Auto) 30% (24-48) Monocytes (%) (Auto) 6% (0-9) Eosinophils (%) (Auto) 2% (0-3) Basophils (%) (Auto) 1% (0-3) Neutrophils # (Auto) 5.3x10^3uL (1.8-7.7) Lymphocytes # (Auto) 2.7x10^3/uL (1.0-4.8) Monocytes # (Auto) 0.5x10^3/uL (0.0-1.1) Eosinophils # (Auto) 0.2x10^3/uL (0.0-0.7) Basophils # (Auto) 0.1x10^3/uL (0.0-0.2) Sodium Level 140mmol/L (136-145) Potassium Level 4.0mmol/L (3.5-5.1) Chloride Level 107mmol/L (98-107) Carbon Dioxide Level 24mmol/L (21-32) Anion Gap 9 (6-14) Blood Urea Nitrogen 12mg/dL (7-20) Creatinine 0.6mg/dL (0.6-1.0) Estimated GFR (Cockcroft-Gault) 105.0 BUN/Creatinine Ratio 20 (6-20) Glucose Level 92mg/dL (70-99) Calcium Level 9.0mg/dL (8.5-10.1) Total Bilirubin 0.3mg/dL (0.2-1.0) Aspartate Amino Transferase (AST) 15U/L (15-37) Alanine Aminotransferase (ALT) 26U/L (14-59) Alkaline Phosphatase 70U/L (46-116) Total Protein 7.7g/dL (6.4-8.2) Albumin 3.3g/dL (3.4-5.0) L Albumin/Globulin Ratio 0.8 (1.0-1.7) L Lipase 104U/L (73-393) Urine Collection Type U cath Urine Color Yellow Urine Clarity Clear Urine pH 6.0 Urine Specific [place] 1.025 Urine Protein Negativemg/dL (NEG-TRACE) Urine Glucose (UA) Negativemg/dL (NEG) Urine Ketones (Stick) Negativemg/dL (NEG) Urine Blood Moderate (NEG) Urine Nitrite Negative (NEG) Urine Bilirubin Negative (NEG) Urine Urobilinogen Dipstick 0.2mg/dL (0.2 mg/dL) Urine Leukocyte Esterase Small (NEG) Urine RBC Occ/HPF (0-2) Urine WBC 1-4/HPF (0-4) Urine Bacteria 0/HPF (0-FEW) Urine Mucus Marked/LPF Laboratory Tests 11/25/16 11:05 Laboratory Tests 11/25/16 11:05 EKG EKG [] Radiology/Procedures Radiology/Procedures [] Course & Med Decision Making Course & Med Decision Making Pertinent Labs and Imaging studies reviewed. (See chart for details) Patient is in the ED with low abdominal pain as well as nausea vomiting and diarrhea that began 2 days ago. This patient was seen in the ED and admitted on November 07, 2016 for same complaints, in October 2016 she was also in the ED for nausea vomiting and diarrhea due to antibiotics use, she currently denies using antibiotics. Urine positive for UTI. CBC CMP lipase with no acute findings. CT of the abdomen and pelvic with oral contrast is negative. Patient has been asking for a lot of pain medicine since she arrived in the ED. She was discharged with Bactrim for 3 days and instructed to take probiotics as well as yogurt for the next 7 days. Instructed this patient follow-up with her own doctor on Sunday. I highly suspect her diarrhea is chronic as well as her nausea vomiting. She was discharged with Zofran. Herminia Disclaimer Cristelaon Disclaimer This electronic medical record was generated, in whole or in part, using a voice recognition dictation system. Departure Departure Impression: Primary Impression: Nausea vomiting and diarrhea Additional Impression: Urinary tract infection Disposition: HOME, SELF-CARE Condition: STABLE Referrals: LENA ZAYAS MD (PCP) Follow-up with Dr. Zayas on Sunday Patient Instructions: Chronic Diarrhea, Nausea and Vomiting, Urinary Tract Infection Additional Instructions: You were seen for chronic diarrhea and vomiting. Please follow-up with your doctor on Sunday. Your urine had a small infection. We put you on antibiotics for 3 days only. Try and take some probiotics as well. Also take some yogurt every day. Come back to the emergency room if symptoms worsen. Scripts Ondansetron (Zofran Odt)4 Mg Tab.rapdis1 Tab SL Q8HRS #15 TAB Prov:TARIK WATERS APRN 11/25/16 Sulfamethoxazole/Trimethoprim (Bactrim Ds Tablet)1 Each Tablet1 Tab PO BID #6 TAB Prov:TARIK WATERS APRN 11/25/16 Problem Qualifiers Additional Impression: Urinary tract infection Urinary tract infection type: site unspecified Hematuria presence: with hematuria Qualified Code: N39.0 - Urinary tract infection, site not specified TARIK WATERS APRN Nov 25, 2016 10:38
[2016-11-25] MEDS ORDERED: MORPHINE SULFATE 10 MG/ML VIAL. IV ONE ×3 (10:45→13:30)
[2016-11-25] MEDS ORDERED: FAMOTIDINE 20 MG/2 ML VIAL IVP ONE (10:45)
[2016-11-25] MEDS ORDERED: IV NORMAL SALINE 1000ML BAG 1,000 ML IV ONE (10:45)
[2016-11-25] MEDS ORDERED: ONDANSETRON PF 4 MG/2 ML VIAL. IV ONE (10:45)
[2016-11-25] MEDS ORDERED: IOHEXOL 300 MG/ML 75 ML VIAL IV ONE (11:00)
[2016-11-25] MEDS ORDERED: CONTRAST GIVEN MC PRN ×2 (11:00→12:30)
[2016-11-25 11:18] LABS: BASO # 0.1 x10^3/uL (0.0-0.2); BASO % 1 % (0-3); EOS % 2 % (0-3); HEMATOCRIT 40.5 % (36.0-47.0); HEMOGLOBIN 13.6 g/dL (12.0-15.5); LYMPH # 2.7 x10^3/uL (1.0-4.8); LYMPH % 30 % (24-48); MEAN CORPUSCULAR HEMOGLOBIN 30 pg (25-35); MEAN CORPUSCULAR HGB CONC 34 g/dL (31-37); MEAN CORPUSCULAR VOLUME 89 fL (79-100); MONO % 6 % (0-9); NEUT % 60 % (31-73); PLATELET COUNT 446 x10^3/uL (140-400); RED BLOOD COUNT 4.56 x10^6/uL (3.50-5.40); RED CELL DISTRIBUTION WIDTH 14.8 % (11.5-14.5); WHITE BLOOD COUNT 8.8 x10^3/uL (4.0-11.0)
[2016-11-25 11:20] LABS: CREATININE 0.6 mg/dL (0.6-1.0)
[2016-11-25 11:26] LABS: ALBUMIN 3.3 g/dL (3.4-5.0); ALBUMIN/GLOBULIN RATIO 0.8 (1.0-1.7); TOTAL BILIRUBIN 0.3 mg/dL (0.2-1.0); TOTAL PROTEIN 7.7 g/dL (6.4-8.2)
[2016-11-25 11:51] LABS: BACTERIA,URINE 0 /HPF (0-FEW); BILIRUBIN,URINE NEGATIVE (NEG); GLUCOSE,URINE NEGATIVE (NEG); NITRITE,URINE NEGATIVE (NEG); PROTEIN,URINE NEGATIVE (NEG-TRACE); RBC,URINE OCC /HPF (0-2); UROBILINOGEN,URINE 0.2 mg/dL (0.2 mg/dL)
[2016-11-25] MEDS ORDERED: IOHEXOL 240 MG/ML 50ML VIAL. PO ONE (12:30)
--- NOTE | 2016-11-25 13:28 | RAD ---
CT of the abdomen and pelvis without contrast, 11/25/2016: History: Nausea, vomiting and diarrhea Multidetector CT imaging was performed following oral administration of contrast. No IV contrast was administered apparently due to the lack of satisfactory IV access. Comparison is made to a study from 11/07/2016. There is a tiny 7 mm elongated nodule in the left lung base which is unchanged. There is minimal linear atelectasis posteriorly in the right base. The gallbladder is surgically absent. The unopacified liver shows no abnormality. No pancreatic abnormality is seen. The spleen is of normal size. The unopacified kidneys and adrenal glands are unremarkable. The abdominal aorta is of normal caliber. There are surgical clips at the right groin level with adjacent streaky areas of increased density. This may represent scarring or inflammation. This is apparently the site of recent abscess drainage. No residual abscess is identified. The uterus is within normal limits in size. The bowel loops are not dilated. No free fluid or free air is evident in the abdomen or pelvis. There are 2 small midline fascial defects in the upper abdomen containing only fat. Internal metallic fixation device is present at the left hip. IMPRESSION: 1. Unchanged tiny left basilar pulmonary nodule. 2. Postsurgical changes at the right groin without current evidence of abscess. 3. Small ventral hernias containing only fat. 4. No acute abdominal or pelvic abnormality is detected. PQRS Compliance Statement: One or more of the following individualized dose reduction techniques were utilized for this examination: 1. Automated exposure control 2. Adjustment of the mA and/or kV according to patient size 3. Use of iterative reconstruction technique
[2016-11-25 14:04] VITALS: BP 133/91
[2016-11-25] MEDS ORDERED: ONDA4TAB10 SL (14:08)
[2016-11-25] MEDS ORDERED: SULF1TAB24 PO (14:08)
== END 2016-11-25 14:23 | disposition home or self-care (01) ==
LOC: ER 10:20
DX: N39.0 Urinary tract infection, site not specified (principal); R11.2 Nausea with vomiting, unspecified; R19.7 Diarrhea, unspecified; I10 Essential (primary) hypertension; E05.90 Thyrotoxicosis, unspecified without thyrotoxic crisis or storm; Z85.72 Personal history of non-Hodgkin lymphomas; Z90.49 Acquired absence of other specified parts of digestive tract; F17.210 Nicotine dependence, cigarettes, uncomplicated; Z96.652 Presence of left artificial knee joint; Z88.6 Allergy status to analgesic agent; Z88.1 Allergy status to other antibiotic agents
CPT/HCPCS: 36415; 51701; 74176; 80053; 81001; 83690; 85027; 96361; 96374; 96375; 96376; 99285; J2270; J2405; J7030; Q9966; S0028

== ENCOUNTER → 2017-05-22 | Day surgery (SDC) | payer MEDICARE, OTHER ==
[~2017-05-22] MED LIST changes: -ESCI20TA; +ESCITALOPRAM OX20 MG; -HYDR2TAB13 PO; +HYDR2TAB31 PO; +HYDROmorphone 2 MG/ML VIAL IV PRN; +IV RINGERS,LACTATED 1000ML 1,000 ML IV SCH; -LEVO25TA2 PO; +LEVO25TA55 PO; +LIDOCAINE 1% 1 ML SYRINGE. ID PRN; +LIDOCAINE 2% PF Vial for OR 5 ML VIAL. ONE; +MORPHINE SULFATE 2 MG/ML DISP.SYRIN. IV PRN; +ONDANSETRON PF 4 MG/2 ML VIAL. IV PRN; +PROCHLORPERAZINE 10 MG/2 ML VIAL. IV PRN; +PROPOFOL 20 ML IV ONE; +SULF1TAB24 PO; -ZALE10CA16 PO; +ZALE10CA44 PO; +fentaNYL PF VIAL 100 MCG/2 ML VIAL IV PRN
--- NOTE | 2017-05-22 08:29 | PDOC1 ---
HISTORY & PHYSICAL H&P Carla Mathew 1965 04/20/2017 11:45 AM 11/05 [employer] [facility], [facility] OUR PATIENTS COME FIRST [address] [place] [address]. [phone] Patient: Carla Mathew Date of : 1965 Date: 04/20/2017 11:45 AM Visit Type: Consult This 52 year old female presents for H/o colorectal polyp. History of Present Illness: 1. H/o colorectal polyp Prior screening: colonoscopy. Risk Factors: h/o colon polyp. Pertinent negatives include abdominal pain, change in bowel habits, change in stool caliber, constipation, decreased appetite, diarrhea, melena, nausea, rectal bleeding, vomiting, weight gain and weight loss. Additional information: No family history of colon cancer, No family history of Crohn's/colitis, No NSAID/ ASA use and Had adenomatous polyp removed in 2013. INTAKE COMMENTS: Intake Comments: Nurse Note: the pt is here today to schedule a colonoscopy due to a h/o colon polyps in 2013. PROBLEM LIST: Problem Description Onset Date Chronic Notes Hypertension 04/20/2017 Y PAST MEDICAL/SURGICAL HISTORY (Detailed) Disease/disorder Onset Date Management Date Comments Appendectomy Cholecystectomy Adenoidectomy Tonsillectomy Bilateral tubal ligation Uterine Ablation EGD with biopsy 08/02/2010 Depression Gastroesophageal reflux disease Hypertension Insomnia Non-Hodgkins Lymphoma Ovarian cyst Medications (Active): Started Medication Directions Instruction Stopped gabapentin 400 mg capsule take 2 capsule by oral route 3 times every day losartan 25 mg tablet take 1 tablet by oral route every day Tirosint 25 mcg capsule take 1 capsule by oral route every day Allergies: Ingredient Reaction Medication Name Comment CODEINE anxiety\rash IBUPROFEN hives KETOROLAC TROMETHAMINE Toradol VANCOMYCIN REVIEW OF SYSTEMS System Neg/Pos Details Constitutional Negative Chills, fever, malaise, weight gain and weight loss. ENMT Negative Sore throat. Eyes Negative Double vision. Respiratory Negative Dyspnea and wheezing. Cardio Negative Chest pain and irregular heartbeat/palpitations. GI Positive See HPI. GI Negative Abdominal pain, change in bowel habits, change in stool caliber, constipation, decreased appetite, diarrhea, melena, nausea, see HPI, rectal bleeding and vomiting. Negative Dysuria and hematuria. Endocrine Negative Cold intolerance and heat intolerance. Psych Negative Anxiety. Integumentary Negative Hives and rash. MS Negative Joint pain. Heath/Lymph Negative Easy bleeding and easy bruising. Allergic/Immuno Negative Food allergies. VITAL SIGNS Time BP mm/Hg Pulse /min Resp /min Temp F Ht ft Ht in Ht cm Wt lb Wt kg BMI kg/ m2 BSA m2 O2 Sat% 11:51 AM 136/84 94 98.0 185.00 83.915 97 Time Measured by 11:51 AM Pascale Adame PHYSICAL EXAM: Exam Findings Details Female GI Quick Visit Comments Wheel chair bound. Has left leg amputation. Constitutional Normal Well developed. Eyes Normal Conjunctiva - Right: Normal, Left: Normal. Sclera - Right: Normal, Left: Normal. Nasopharynx Normal Lips/teeth/gums - Normal. Neck Exam Normal Inspection - Normal. Thyroid gland - Normal. Respiratory Normal Inspection - Normal. Auscultation - Normal. Cardiovascular Normal Regular rate and rhythm. No murmurs, gallops, or rubs. Vascular Normal Pulses - Carotids: Normal, Femoral: Normal, Dorsalis pedis: Normal. Abdomen Normal Inspection - Normal. Anterior palpation - No guarding. No abdominal tenderness. No hepatic enlargement. No splenic enlargement. No hernia. No Ascites. Skin Normal Inspection - Normal. Extremity Normal No edema. Psychiatric Normal Oriented to time, place, person, and situation. Appropriate mood and effect. # Detail Type Description 1. Assessment History of colon polyps (Z86.010). Patient Plan schedule colonoscopy at [facility] Plan Orders Further diagnostic evaluations ordered today include(s) Colonoscopy to be performed today. She is to schedule a follow-up visit with Niko Hawk MD upon completion of work-up Electronically signed by: Niko Hawk MD 04/20/2017 12:01 PM Document generated by: Niko Hawk 04/20/2017 12:01 PM Diana Song MD, Family Practice; Brandan Blackburn MD Internal Medicine; Hung Le MD, Internal Medicine; Ozzy Hawk MD Internal Medicine; Niko Hawk MD, Gastroenterology; Jame Ruby MD, Rheumatology, S. Umberto Fajardo, Physical Medicine/Rehab Ruben Ocampo APRN ------ 05/22/17 Patient seen and examined. No change in H&P. NIKO HAWK MD May 22, 2017 08:29
[2017-05-22 10:46] VITALS: BP 112/66
--- NOTE | 2017-05-23 16:31 | PATHOLOGY ---
PATHOLOGY REPORT * * * * * * * * FINAL DIAGNOSIS: A. Colon biopsies, ascending colon polyp: - Mixed hyperplastic and adenomatous polyp. B. Colon biopsy, sigmoid colon polyp: - Tubular adenoma. COMMENT: There is no high-grade dysplasia or evidence of malignancy. (JPM:pit; 05/23/2017) REPORT ELECTRONICALLY SIGNED BY: Yayo Ramos M.D. DATE/TIME: 05/23/2017 16:31 * * * * * * * * GROSS PATHOLOGY: A. Received in formalin labeled "Cori Zuniga, ascending colon polyp," are multiple segments of barkley soft tissue measuring from 0.1 up to 0.3 cm in maximum dimension. The specimen is submitted entirely in cassette A1. B. Received in formalin labeled "sigmoid colon polyp," is a segment of barkley soft tissue measuring 0.4 cm in maximum dimension. The specimen is submitted entirely in cassette B1. (JPM; 05/22/17) INITIAL CPT CODE(S): A; 11069 B; 26791 Professional services [place] [facility] [place] [address] Technical services performed by [facility] at [address] [place] [address]. SPECIMEN(S) RECEIVED: A.Ascending colon polyp B.Sigmoid colon polyp CLINICAL HISTORY: History of colon polyps; polyps PATIENT: CORI ZUNIGA /AGE: 3 1965 (Age: 52) PATIENT #: [id number] ALT CASE #: SPECIMEN COLLECTION DATE: 05/22/2017 SPECIMEN RECEIVED DATE: 05/22/2017 [facility] - [address] [place] [address] - PHONE: [phone] * * * END OF REPORT * * *
== END | disposition home or self-care (01) ==
LOC: ENDOS 08:18
PROVIDERS: ATTEND Internal Medicine Gastroenterology
DX: Z09 Encounter for follow-up examination after completed treatment for conditions other than malignant neoplasm (principal); Z87.19 Personal history of other diseases of the digestive system; D12.2 Benign neoplasm of ascending colon; D12.5 Benign neoplasm of sigmoid colon; Z86.69 Personal history of other diseases of the nervous system and sense organs; E78.00 Pure hypercholesterolemia, unspecified; I10 Essential (primary) hypertension; E66.9 Obesity, unspecified; Z68.43 Body mass index [BMI] 50.0-59.9, adult; K21.9 Gastro-esophageal reflux disease without esophagitis; F41.9 Anxiety disorder, unspecified; F32.9 Major depressive disorder, single episode, unspecified; Z90.49 Acquired absence of other specified parts of digestive tract; Z87.442 Personal history of urinary calculi; Z98.51 Tubal ligation status; Z87.440 Personal history of urinary (tract) infections; Z72.89 Other problems related to lifestyle; Z88.6 Allergy status to analgesic agent; Z88.1 Allergy status to other antibiotic agents; Z88.8 Allergy status to other drugs, medicaments and biological substances
CPT/HCPCS: 45385; 88305; J2001; J2704

== ENCOUNTER 2017-09-25 04:13 | Inpatient (IN) | payer MEDICARE, OTHER ==
[2017-09-25] VITALS (17 sets, daily range): BP systolic 72–106; BP diastolic 41–64
[~2017-09-25] VITALS: Ht 154.9 cm; Wt 79.4 kg
[~2017-09-25 04:13] MED LIST changes: -HYDROmorphone 2 MG/ML VIAL IV PRN; -IV RINGERS,LACTATED 1000ML 1,000 ML IV SCH; -LIDOCAINE 1% 1 ML SYRINGE. ID PRN; -LIDOCAINE 2% PF Vial for OR 5 ML VIAL. ONE; -MORPHINE SULFATE 2 MG/ML DISP.SYRIN. IV PRN; -ONDANSETRON PF 4 MG/2 ML VIAL. IV PRN; -OXYC5TAB PO; +OXYC5TAB95 PO; -PROCHLORPERAZINE 10 MG/2 ML VIAL. IV PRN; -PROPOFOL 20 ML IV ONE; -fentaNYL PF VIAL 100 MCG/2 ML VIAL IV PRN
[2017-09-25] MEDS ORDERED: IV NORMAL SALINE 1000ML BAG 1,000 ML IV ONE ×5 (04:30→17:45)
[2017-09-25] MEDS ORDERED: IV NORMAL SALINE 1000ML BAG 1,000 ML IV SCH (04:30)
[2017-09-25] MEDS ORDERED: ONDANSETRON PF 4 MG/2 ML VIAL. ONE (05:07)
[2017-09-25] MEDS ORDERED: IOHEXOL 300 MG/ML 100ML VIAL. IV ONE (05:15)
[2017-09-25] MEDS ORDERED: CONTRAST GIVEN MC PRN (05:15)
[2017-09-25] MEDS ORDERED: HYDROmorphone 2 MG/ML VIAL IV ONE (05:15)
[2017-09-25 05:18] LABS: BASO % 0 % (0-3); EOS % 2 % (0-3); HEMATOCRIT 42.7 % (36.0-47.0); HEMOGLOBIN 14.4 g/dL (12.0-15.5); LYMPH # 0.7 x10^3/uL (1.0-4.8); LYMPH % 15 % (24-48); MEAN CORPUSCULAR HEMOGLOBIN 32 pg (25-35); MEAN CORPUSCULAR HGB CONC 34 g/dL (31-37); MEAN CORPUSCULAR VOLUME 94 fL (79-100); MONO % 11 % (0-9); NEUT % 72 % (31-73); PLATELET COUNT 319 x10^3/uL (140-400); RED BLOOD COUNT 4.57 x10^6/uL (3.50-5.40); WHITE BLOOD COUNT 4.7 x10^3/uL (4.0-11.0)
[2017-09-25 05:26] LABS: CALCIUM 8.3 mg/dL (8.5-10.1); CREATININE 0.9 mg/dL (0.6-1.0); GFR 65.5; POTASSIUM 3.5 mmol/L (3.5-5.1)
[2017-09-25 05:32] LABS: ALBUMIN/GLOBULIN RATIO 0.8 (1.0-1.7); TOTAL BILIRUBIN 0.3 mg/dL (0.2-1.0); TOTAL PROTEIN 6.9 g/dL (6.4-8.2)
--- NOTE | 2017-09-25 06:24 | RAD ---
CT abdomen and pelvis with contrast: Reason for examination: Abdominal pain. Comparison is made to previous study dated 11/25/2016. Helical images were obtained through the abdomen and pelvis with intravenous administration of 75 cc Omnipaque 300. Reconstruction was performed in sagittal and coronal planes. Lung bases show dependent atelectasis. There is also a small noncalcified pulmonary nodule posterior laterally at the left lung base measuring 5.9 mm in size. Recommend follow-up. The heart size is normal with no pericardial effusion. No abnormality seen at the liver, spleen, adrenal glands or pancreas. Gallbladder appears be surgically absent. The abdominal aorta and inferior vena cava show no acute abnormalities. The kidneys show no renal masses, renal calculi, hydronephrosis or evidence of obstructive uropathy. The intestinal tract shows no abnormally dilated loops of bowel or thickened bowel tinoco. No bowel obstruction is seen. There is no evidence of diverticulosis or diverticulitis. Appendix is not identified. No abnormality seen at the bladder or uterus. No adnexal masses are seen. There continues to be a 1 cm nodular density in the fat adjacent to the mid sigmoid colon which is unchanged. Multiple surgical clips are seen in the right inguinal region. Electronic device remains present in the right gluteal region. No acute bony abnormalities are seen. IMPRESSION: 5.9 mm noncalcified nodule posterior laterally at the left lung base. Recommend follow-up according to Fleischner Society guidelines. Continued presence of a 1 cm nodular density adjacent to the mid sigmoid colon which is unchanged. Fleischner Society recommendations (Radiology 2013; 266;304-317): Subsolid nodules: Solitary pure groundglass nodules: Less then or equal to 5 mm: No CT follow-up is required. Greater than 5 mm: Initial follow-up CT at 3 months, it persists, then annual surveillance CT for minimal of 3 years. Solitary part solid nodules: Less than 5 mm: Initial follow-up CT at 3 months, it persists, then annual surveillance CT for minimal 3 years. Greater or equal to 5 mm: Initial follow-up CT at 3 months, if persists, then biopsy or surgical resection. Multiple subsolid nodules: Groundglass nodules less than or equal to 5 mm: Obtained follow-up CT at 2 and 4 years. Groundglass nodules greater than 5 mm: Initial CT follow-up at 3 months, then annual surveillance CT for minimal of 3 years. Dominant nodule with part solid or solid component: Initial follow-up CT at 3 months. It persists, biopsy or surgical resection is recommended for lesions greater than 5 mm. Electronically signed by: Calista Pillai MD (09/25/2017 6:20 AM) [facility]
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
[2017-09-25] MEDS ORDERED: HALOPERIDOL LACTATE 5 MG/ML VIAL. IVP ONE (06:45)
[2017-09-25 07:36] LABS: BILIRUBIN,URINE NEGATIVE (NEG); GLUCOSE,URINE NEGATIVE (NEG); NITRITE,URINE NEGATIVE (NEG); PROTEIN,URINE NEGATIVE (NEG-TRACE); UROBILINOGEN,URINE 0.2 mg/dL (0.2 mg/dL)
[2017-09-25 07:53] LABS: BACTERIA,URINE FEW /HPF (0-FEW); SQUAMOUS EPITHELIAL CELL,UR OCC /LPF
--- NOTE | 2017-09-25 09:23 | RAD ---
EXAM: Chest one view. HISTORY: Hypoxia, hypotension. COMPARISON: 11/07/2016. FINDINGS: A frontal view of the chest is obtained. The inspiration is small. There mild interstitial infiltrates in the left base. There is no pneumothorax or pleural effusion. The heart is not enlarged. There is chronic fracture deformities of the left scapula and left proximal humerus, partially visualized. Multiple chronic left rib fractures are noted. Spinal stimulator has its electrodes along the cervical spine and right mid thoracic paraspinal region. IMPRESSION: 1. Mild interstitial opacities in the left base. Correlate for atypical pneumonia or mild pulmonary edema.
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
[2017-09-25] MEDS ORDERED: ONDANSETRON ODT 4 MG TAB.RAPDIS. PO PRN (09:45)
[2017-09-25] MEDS ORDERED: DICYCLOMINE HCL 10 MG CAPSULE PO PRN (09:45)
[2017-09-25] MEDS ORDERED: ONDANSETRON ODT 4 MG TAB.RAPDIS. JT PRN (09:45)
[2017-09-25] MEDS: PRAMIPEXOLE 0.25 MG TABLET. PO SCH ×3 (10:00→19:57)
[2017-09-25] MEDS: busPIRone 10 MG TABLET. PO SCH ×3 (10:00→19:57)
[2017-09-25] MEDS: DULoxetine HCL 30 MG CAPSULE.DR PO SCH (10:00)
[2017-09-25] MEDS ORDERED: guaiFENesin/CODEINE 100mg/10mg 5 ML LIQUID PO PRN (10:00)
[2017-09-25] MEDS: PREGABALIN 75 MG CAPSULE PO SCH ×3 (10:00→19:57)
[2017-09-25] MEDS: LEVOTHYROXINE 50 MCG TABLET PO SCH (10:00)
[2017-09-25] MEDS: IPRATRPIUM/ALBUTEROL 0.5/2.5MG 3 ML NEBU. NEB SCH ×3 (11:36→19:46)
[2017-09-25] MEDS: IV NORMAL SALINE 1000ML BAG 1,000 ML IV SCH ×3 (12:41→23:05)
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
[2017-09-25] MEDS ORDERED: NOREPINEPHRIN PREMIX 250 ML IV PRN (17:45)
[2017-09-25] MEDS: metroNIDAZOLE 500 MG TABLET PO SCH ×2 (18:25→23:05)
[2017-09-25] MEDS: CHOLESTYRAMINE/ASPARTAME 4 GM PACKET PO SCH (19:56)
[2017-09-25] MEDS: LACTOBACILLUS RHAMNOSUS GG 1 CAPSULE. PO SCH (19:57)
[2017-09-25] MEDS: FAMOTIDINE 20 MG TABLET. PO SCH (19:57)
[2017-09-26 03:00] VITALS: BP 110/62
[2017-09-26] MEDS: LEVOTHYROXINE 50 MCG TABLET PO SCH (05:14)
[2017-09-26] MEDS: metroNIDAZOLE 500 MG TABLET PO SCH ×4 (05:14→23:26)
[2017-09-26] MEDS ORDERED: IBUPROFEN 600 MG TABLET. PO PRN ×2 (06:45→08:45)
[2017-09-26 07:00] VITALS: BP 106/61
[2017-09-26] MEDS: IPRATRPIUM/ALBUTEROL 0.5/2.5MG 3 ML NEBU. NEB SCH ×4 (07:07→19:47)
[2017-09-26 07:48] LABS: HEMATOCRIT 36.2 % (36.0-47.0); HEMOGLOBIN 11.8 g/dL (12.0-15.5); RED BLOOD COUNT 3.85 x10^6/uL (3.50-5.40); RED CELL DISTRIBUTION WIDTH 13.4 % (11.5-14.5); WHITE BLOOD COUNT 5.2 x10^3/uL (4.0-11.0)
[2017-09-26 08:00] LABS: ALBUMIN 2.4 g/dL (3.4-5.0); ALBUMIN/GLOBULIN RATIO 0.7 (1.0-1.7); CREATININE 0.6 mg/dL (0.6-1.0); GFR 104.6; POTASSIUM 3.1 mmol/L (3.5-5.1); TOTAL BILIRUBIN 0.3 mg/dL (0.2-1.0); TOTAL PROTEIN 5.9 g/dL (6.4-8.2)
[2017-09-26] MEDS: PRAMIPEXOLE 0.25 MG TABLET. PO SCH ×3 (08:13→22:33)
[2017-09-26] MEDS: CHOLESTYRAMINE/ASPARTAME 4 GM PACKET PO SCH ×2 (08:13→22:32)
[2017-09-26] MEDS: busPIRone 10 MG TABLET. PO SCH ×3 (08:14→22:33)
[2017-09-26] MEDS: DULoxetine HCL 30 MG CAPSULE.DR PO SCH (08:14)
[2017-09-26] MEDS: LACTOBACILLUS RHAMNOSUS GG 1 CAPSULE. PO SCH ×2 (08:15→22:33)
[2017-09-26] MEDS: PREGABALIN 75 MG CAPSULE PO SCH ×3 (08:15→22:33)
--- NOTE | 2017-09-26 08:41 | PDOC ---
GENERAL General: vss and afebrile. blood pressure back up with ongoing hydration. chest clear, heart regular, and abdomen benign. no vomiting or diarrhea last 24 hrs so will start clear liquids and give ibuprofen for headache and dc ordaz. Problems: VITAL SIGNS Vital Signs: Vital Signs Date Time Temp Pulse Resp B/P (MAP) Pulse Ox O2 Delivery O2 Flow Rate FiO2 09/26/17 07:10 97 Room Air 09/26/17 07:00 97.3 112 18 106/61 (76) 2.0 97.3 I & O I & O Intake and Output 09/26/17 07:00 Intake Total 2000 ml Output Total 1075 ml Balance 925 ml Intake IV Total 2000 ml Output Urine Total 1075 ml # Voids 2 # Bowel Movements 7 ALLERGIES Allergies: Allergies Coded Allergies Type Severity Reaction Last Updated Verified acetaminophen Allergy Intermediate Itching 05/22/17 Yes codeine Allergy Intermediate anxiety/rash 05/22/17 Yes doxycycline Allergy Intermediate Itching 05/22/17 Yes ketorolac Allergy Intermediate 05/22/17 Yes tromethamine Allergy Intermediate 05/22/17 Yes vancomycin Allergy Intermediate 05/22/17 Yes I S O L A T I O N *CONTACT* Allergy Unknown 09/25/17 Yes ibuprofen Adverse Reaction Intermediate 09/26/17 Yes MEDS Medications: Current Medications Medications (Trade) Dose Ordered Sig/Alda Start Time Stop Time Status Last Admin Dose Admin Albuterol/ Ipratropium (Duoneb) 3 ml RTQID 09/25/17 12:00 09/26/17 07:07 3 ML Buspirone HCl (Buspar) 10 mg TID 09/25/17 10:00 09/26/17 08:14 10 MG Cholestyramine Resin (Questran Light) 4 gm BID@0809/25/17 20:00 09/26/17 08:13 4 GM Dicyclomine HCl (Bentyl) 10 mg Q8HRS PRN 09/25/17 09:45 Duloxetine HCl (Cymbalta) 60 mg DAILY 09/25/17 10:00 09/26/17 08:14 60 MG Famotidine (Pepcid) 20 mg QHS 09/25/17 21:00 09/25/17 19:57 20 MG Guaifenesin/ Codeine Phosphate (Robitussin Ac) 5 ml PRN Q6HRS PRN 09/25/17 10:00 Haloperidol Lactate (Haldol) 5 mg 1X ONCE 09/25/17 06:45 09/25/17 06:46 DC 09/25/17 06:50 5 MG Hydromorphone HCl (Dilaudid) 1 mg 1X ONCE 09/25/17 05:15 09/25/17 05:16 DC 09/25/17 05:11 1 MG Ibuprofen (Motrin) 600 mg PRN Q8HRS PRN 09/26/17 06:45 09/26/17 08:14 600 MG Info (Do NOT chart on this entry -- for MONITORING) 1 each PRN DAILY PRN 09/25/17 05:15 09/27/17 05:14 Iohexol (Omnipaque 300 Mg/ml) 75 ml 1X ONCE 09/25/17 05:15 09/25/17 05:16 DC 09/25/17 05:46 75 ML Lactobacillus Rhamnosus (Culturelle) 1 cap BID 09/25/17 21:00 09/26/17 08:15 1 CAP Levothyroxine Sodium (Synthroid) 50 mcg DAILY07 09/25/17 10:00 09/26/17 05:14 50 MCG Lorazepam (Ativan) 1 mg 1X ONCE 09/25/17 06:00 09/25/17 06:01 DC Metronidazole (Flagyl) 500 mg Q6HRS 09/25/17 18:00 09/26/17 05:14 500 MG Norepinephrine Bitartrate 250 ml @ 0 mls/hr CONT PRN 09/25/17 17:45 Ondansetron HCl (Zofran Odt) 4 mg Q8HRS PRN 09/25/17 09:45 Ondansetron HCl (Zofran) 4 mg STK-MED ONCE 09/25/17 05:07 09/25/17 05:08 DC Pramipexole Dihydrochloride (miraPEX) 0.5 mg TID 09/25/17 10:00 09/26/17 08:13 0.5 MG Pregabalin (Lyrica) 150 mg TID 09/25/17 10:00 09/26/17 08:15 150 MG Sodium Chloride 1,000 ml @ 1,000 mls/hr 1X ONCE 09/25/17 17:45 09/25/17 18:44 DC 09/25/17 18:24 1,000 MLS/HR LAB Lab: Laboratory Tests Test 09/25/17 09:00 09/26/17 07:30 Nasal Screen MRSA (PCR) Negative (Negative) White Blood Count 5.2 x10^3/uL (4.0-11.0) Red Blood Count 3.85 x10^6/uL (3.50-5.40) Hemoglobin 11.8 g/dL (12.0-15.5) Hematocrit 36.2 % (36.0-47.0) Mean Corpuscular Volume 94 fL (79-100) Mean Corpuscular Hemoglobin 31 pg (25-35) Mean Corpuscular Hemoglobin Concent 33 g/dL (31-37) Red Cell Distribution Width 13.4 % (11.5-14.5) Platelet Count 232 x10^3/uL (140-400) Sodium Level 143 mmol/L (136-145) Potassium Level 3.1 mmol/L (3.5-5.1) Chloride Level 112 mmol/L (98-107) Carbon Dioxide Level 22 mmol/L (21-32) Anion Gap 9 (6-14) Blood Urea Nitrogen 6 mg/dL (7-20) Creatinine 0.6 mg/dL (0.6-1.0) Estimated GFR (Cockcroft-Gault) 104.6 BUN/Creatinine Ratio 10 (6-20) Glucose Level 101 mg/dL (70-99) Calcium Level 8.0 mg/dL (8.5-10.1) Total Bilirubin 0.3 mg/dL (0.2-1.0) Aspartate Amino Transf (AST/SGOT) 13 U/L (15-37) Alanine Aminotransferase (ALT/SGPT) 14 U/L (14-59) Alkaline Phosphatase 58 U/L (46-116) Total Protein 5.9 g/dL (6.4-8.2) Albumin 2.4 g/dL (3.4-5.0) Albumin/Globulin Ratio 0.7 (1.0-1.7) FANNIE MELENDEZ MD Sep 26, 2017 08:41
[2017-09-26] MEDS ORDERED: POTASSIUM CHLORIDE 20 MEQ TABLET.ER. PO ONE (08:45)
--- NOTE | 2017-09-26 08:56 | PDOC ---
Subjective: Subjective: Feels much better. Last stool was around 2:00 a.m. No abd pain. Tolerating diet, no n/v. Hopeful to DC tomorrow. Objective: Vital Signs: Vital Signs Date Time Temp Pulse Resp B/P (MAP) Pulse Ox O2 Delivery O2 Flow Rate FiO2 09/26/17 07:10 97 Room Air 09/26/17 07:00 97.3 112 18 106/61 (76) 2.0 97.3 Labs: Laboratory Tests Test 09/25/17 09:00 09/26/17 07:30 Nasal Screen MRSA (PCR) Negative White Blood Count 5.2 x10^3/uL Red Blood Count 3.85 x10^6/uL Hemoglobin 11.8 g/dL Hematocrit 36.2 % Mean Corpuscular Volume 94 fL Mean Corpuscular Hemoglobin 31 pg Mean Corpuscular Hemoglobin Concent 33 g/dL Red Cell Distribution Width 13.4 % Platelet Count 232 x10^3/uL Sodium Level 143 mmol/L Potassium Level 3.1 mmol/L Chloride Level 112 mmol/L Carbon Dioxide Level 22 mmol/L Anion Gap 9 Blood Urea Nitrogen 6 mg/dL Creatinine 0.6 mg/dL Estimated GFR (Cockcroft-Gault) 104.6 BUN/Creatinine Ratio 10 Glucose Level 101 mg/dL Calcium Level 8.0 mg/dL Total Bilirubin 0.3 mg/dL Aspartate Amino Transf (AST/SGOT) 13 U/L Alanine Aminotransferase (ALT/SGPT) 14 U/L Alkaline Phosphatase 58 U/L Total Protein 5.9 g/dL Albumin 2.4 g/dL Albumin/Globulin Ratio 0.7 PE: GEN: NAD LUNGS: clear, off nasal cannula when I saw HEART: tachycardic ABD: NABS, S/ND/NT NEURO/PSYCH: A & O 3 A/P: C Diff -on Flagyl and cholestyramine Tachycardia -- Improved. Continue atbx. DC per primary. ANGEL LACY Sep 26, 2017 08:56
[2017-09-26] MEDS: IV NORMAL SALINE 1000ML BAG 1,000 ML IV SCH ×2 (09:26→18:04)
[2017-09-26] MEDS: diazePAM 5 MG TABLET PO PRN ×2 (09:27→22:41)
[2017-09-26 11:00] VITALS: BP 95/55
[2017-09-26 15:00] VITALS: BP 125/89
[2017-09-26 19:00] VITALS: BP 106/75
[2017-09-26] MEDS ORDERED: ZOLPIDEM 5 MG TABLET. PO PRN (19:45)
[2017-09-26] MEDS: FAMOTIDINE 20 MG TABLET. PO SCH (22:33)
[2017-09-26 23:00] VITALS: BP 129/85
[2017-09-27 03:00] VITALS: BP 128/77
[2017-09-27] MEDS: IV NORMAL SALINE 1000ML BAG 1,000 ML IV SCH (03:21)
[2017-09-27 05:10] LABS: CALCIUM 7.6 mg/dL (8.5-10.1); CREATININE 0.6 mg/dL (0.6-1.0); GFR 104.6; POTASSIUM 3.7 mmol/L (3.5-5.1)
[2017-09-27] MEDS: LEVOTHYROXINE 50 MCG TABLET PO SCH (06:15)
[2017-09-27] MEDS: metroNIDAZOLE 500 MG TABLET PO SCH (06:15)
[2017-09-27 07:00] VITALS: BP 133/91
[2017-09-27] MEDS: IPRATRPIUM/ALBUTEROL 0.5/2.5MG 3 ML NEBU. NEB SCH (07:34)
[2017-09-27] MEDS: PRAMIPEXOLE 0.25 MG TABLET. PO SCH (09:15)
[2017-09-27] MEDS: DULoxetine HCL 30 MG CAPSULE.DR PO SCH (09:16)
[2017-09-27] MEDS: LACTOBACILLUS RHAMNOSUS GG 1 CAPSULE. PO SCH (09:16)
[2017-09-27] MEDS: PREGABALIN 75 MG CAPSULE PO SCH (09:16)
[2017-09-27] MEDS: busPIRone 10 MG TABLET. PO SCH (09:16)
[2017-09-27] MEDS: CHOLESTYRAMINE/ASPARTAME 4 GM PACKET PO SCH (09:18)
[2017-09-27] MEDS: diazePAM 5 MG TABLET PO PRN (09:23)
[2017-09-27] MEDS ORDERED: METR500T PO (09:41)
[2017-09-27] MEDS ORDERED: LACT1TAB24 PO (09:42)
--- NOTE | 2017-09-27 09:51 | PDOC ---
GENERAL General: see discharge summary. Problems: VITAL SIGNS Vital Signs: Vital Signs Date Time Temp Pulse Resp B/P (MAP) Pulse Ox O2 Delivery O2 Flow Rate FiO2 09/27/17 07:36 99 Room Air 09/27/17 07:00 97.0 89 18 133/91 (105) 2.0 97.0 I & O I & O Intake and Output 09/27/17 07:00 Intake Total 2560 ml Balance 2560 ml Intake Oral 1560 ml IV Total 1000 ml # Voids 3 # Bowel Movements 4 ALLERGIES Allergies: Allergies Coded Allergies Type Severity Reaction Last Updated Verified acetaminophen Allergy Intermediate Itching 05/22/17 Yes codeine Allergy Intermediate anxiety/rash 05/22/17 Yes doxycycline Allergy Intermediate Itching 05/22/17 Yes ketorolac Allergy Intermediate 05/22/17 Yes tromethamine Allergy Intermediate 05/22/17 Yes vancomycin Allergy Intermediate 05/22/17 Yes I S O L A T I O N *CONTACT* Allergy Unknown 09/25/17 Yes ibuprofen Adverse Reaction Intermediate 09/26/17 Yes MEDS Medications: Current Medications Medications (Trade) Dose Ordered Sig/Alda Start Time Stop Time Status Last Admin Dose Admin Albuterol/ Ipratropium (Duoneb) 3 ml RTQID 09/25/17 12:00 09/27/17 07:34 3 ML Buspirone HCl (Buspar) 10 mg TID 09/25/17 10:00 09/27/17 09:16 10 MG Cholestyramine Resin (Questran Light) 4 gm BID@0800,2000 09/25/17 20:00 09/27/17 09:18 4 GM Diazepam (Valium) 5 mg BID PRN 09/26/17 09:15 09/27/17 09:23 5 MG Dicyclomine HCl (Bentyl) 10 mg Q8HRS PRN 09/25/17 09:45 Duloxetine HCl (Cymbalta) 60 mg DAILY 09/25/17 10:00 09/27/17 09:16 60 MG Famotidine (Pepcid) 20 mg QHS 09/25/17 21:00 09/26/17 22:33 20 MG Guaifenesin/ Codeine Phosphate (Robitussin Ac) 5 ml PRN Q6HRS PRN 09/25/17 10:00 Haloperidol Lactate (Haldol) 5 mg 1X ONCE 09/25/17 06:45 09/25/17 06:46 DC 09/25/17 06:50 5 MG Hydromorphone HCl (Dilaudid) 1 mg 1X ONCE 09/25/17 05:15 09/25/17 05:16 DC 09/25/17 05:11 1 MG Ibuprofen (Motrin) 600 mg PRN Q6HRS PRN 09/26/17 08:45 Info (Do NOT chart on this entry -- for MONITORING) 1 each PRN DAILY PRN 09/25/17 05:15 09/27/17 05:14 DC Iohexol (Omnipaque 300 Mg/ml) 75 ml 1X ONCE 09/25/17 05:15 09/25/17 05:16 DC 09/25/17 05:46 75 ML Lactobacillus Rhamnosus (Culturelle) 1 cap BID 09/25/17 21:00 09/27/17 09:16 1 CAP Levothyroxine Sodium (Synthroid) 50 mcg DAILY07 09/25/17 10:00 09/27/17 06:15 50 MCG Lorazepam (Ativan) 1 mg 1X ONCE 09/25/17 06:00 09/25/17 06:01 DC Metronidazole (Flagyl) 500 mg Q6HRS 09/25/17 18:00 09/27/17 06:15 500 MG Norepinephrine Bitartrate 250 ml @ 0 mls/hr CONT PRN 09/25/17 17:45 09/26/17 11:20 DC Ondansetron HCl (Zofran Odt) 4 mg Q8HRS PRN 09/25/17 09:45 Ondansetron HCl (Zofran) 4 mg STK-MED ONCE 09/25/17 05:07 09/25/17 05:08 DC Potassium Chloride (Klor-Con) 40 meq 1X ONCE 09/26/17 08:45 09/26/17 08:46 DC 09/26/17 09:27 40 MEQ Pramipexole Dihydrochloride (miraPEX) 0.5 mg TID 09/25/17 10:00 09/27/17 09:15 0.5 MG Pregabalin (Lyrica) 150 mg TID 09/25/17 10:00 09/27/17 09:16 150 MG Sodium Chloride 1,000 ml @ 1,000 mls/hr 1X ONCE 09/25/17 17:45 09/25/17 18:44 DC 09/25/17 18:24 1,000 MLS/HR Zolpidem Tartrate (Ambien) 5 mg PRN QHS PRN 09/26/17 19:45 LAB Lab: Laboratory Tests Test 09/27/17 04:25 Sodium Level 145 mmol/L (136-145) Potassium Level 3.7 mmol/L (3.5-5.1) Chloride Level 115 mmol/L (98-107) Carbon Dioxide Level 17 mmol/L (21-32) Anion Gap 13 (6-14) Blood Urea Nitrogen 3 mg/dL (7-20) Creatinine 0.6 mg/dL (0.6-1.0) Estimated GFR (Cockcroft-Gault) 104.6 Glucose Level 104 mg/dL (70-99) Calcium Level 7.6 mg/dL (8.5-10.1) FANNIE MELENDEZ MD Sep 27, 2017 09:51
--- NOTE | 2017-09-27 11:42 | DS ---
DATE OF DISCHARGE: 09/27/2017 PRIMARY DIAGNOSIS: Diarrhea due to Clostridium difficile with dehydration. ADDITIONAL DIAGNOSES: Hypotension, hypovolemia, tachycardia, chronic obstructive pulmonary disease, history of hypertension, hyperlipidemia, anxiety, depression, hypothyroidism, obesity and fatty liver. CHIEF COMPLAINT AND HISTORY OF PRESENT ILLNESS: This 52-year-old white female, patient of Dr. Doan, was admitted through the Emergency Room with diarrhea, nausea, vomiting, dehydration, hypotension and tachycardia. SUMMARY OF STAY: The patient was hydrated. She was C. diff positive, started on Flagyl with resolution of her diarrhea and symptomatology. By the day of discharge, where she felt ready for dismissal, it was felt that she could be dismissed on a probiotic and ongoing Flagyl as well as her regular home medications with followup in the office with Dr. Doan in a week from the day of discharge and this was accomplished. DISPOSITION: The patient is discharged to home. Regular diet. Activity as tolerated. Dr. Doan's office in 1 week. To resume her regular home medicines plus probiotics daily as well as Flagyl 500 b.i.d. for the next 10 days. FANNIE MELENDEZ MD DR: ADDISON/jordan JOB#: [id number] / [id number]
== END 2017-09-27 10:10 | disposition home or self-care (01) | DRG 371 ==
LOC: ER 04:13 → 1 WEST ICU 07:40 → 5 NORTH 22:14
PROVIDERS: ADMIT Internal Medicine; ATTEND Internal Medicine
DX: A04.72 Enterocolitis due to Clostridium difficile, not specified as recurrent (principal); R57.1 Hypovolemic shock; G81.94 Hemiplegia, unspecified affecting left nondominant side; I11.9 Hypertensive heart disease without heart failure; G54.0 Brachial plexus disorders; K76.0 Fatty (change of) liver, not elsewhere classified; E03.9 Hypothyroidism, unspecified; J44.9 Chronic obstructive pulmonary disease, unspecified; F41.9 Anxiety disorder, unspecified; F32.9 Major depressive disorder, single episode, unspecified; E78.5 Hyperlipidemia, unspecified; E05.90 Thyrotoxicosis, unspecified without thyrotoxic crisis or storm; E66.9 Obesity, unspecified; M19.90 Unspecified osteoarthritis, unspecified site; Z96.649 Presence of unspecified artificial hip joint; M79.7 Fibromyalgia; Z76.5 Malingerer [conscious simulation]; Z82.49 Family history of ischemic heart disease and other diseases of the circulatory system; Z89.612 Acquired absence of left leg above knee; Z89.519 Acquired absence of unspecified leg below knee; Z90.49 Acquired absence of other specified parts of digestive tract; Z87.440 Personal history of urinary (tract) infections; Z87.81 Personal history of (healed) traumatic fracture; Z86.010 Personal history of colon polyps; Z68.33 Body mass index [BMI] 33.0-33.9, adult; Z87.01 Personal history of pneumonia (recurrent); Z88.1 Allergy status to other antibiotic agents; Z88.5 Allergy status to narcotic agent; Z91.09 Other allergy status, other than to drugs and biological substances; Z90.710 Acquired absence of both cervix and uterus; Z98.51 Tubal ligation status
CPT/HCPCS: 36415; 71010; 74177; 80048; 80053; 81001; 83605; 83690; 84443; 85025; 85027; 87045; 87205; 87324; 87641; 94250; 94640; 94760; 96361; 96374; 96375; J1170; J1630; J2060; J7030; J7620; Q9967; 99291-25

== ENCOUNTER 2018-04-22 21:58 | Inpatient (IN) | payer OTHER, MEDICARE ==
[2018-04-23 00:17] LABS: ADD MAN DIFF? NO
[2018-04-23] MEDS: NITROGLYCERIN OINT 1 GM PACKET. TP (00:17)
[2018-04-23 00:22] LABS: BASO # 0.1 x10^3/uL (0.0-0.2); BASO % 1 % (0-3); EOS # 0.2 x10^3/uL (0.0-0.7); EOS % 2 % (0-3); HEMATOCRIT 38.7 % (36.0-47.0); HEMOGLOBIN 13.6 g/dL (12.0-15.5); LYMPH # 1.9 x10^3/uL (1.0-4.8); LYMPH % 27 % (24-48); MEAN CORPUSCULAR HEMOGLOBIN 32 pg (25-35); MEAN CORPUSCULAR HGB CONC 35 g/dL (31-37); MEAN CORPUSCULAR VOLUME 91 fL (79-100); MONO # 0.8 x10^3/uL (0.0-1.1); MONO % 11 % (0-9); NEUT # 4.1 x10^3uL (1.8-7.7); NEUT % 59 % (31-73); PLATELET COUNT 348 x10^3/uL (140-400); RED BLOOD COUNT 4.27 x10^6/uL (3.50-5.40); RED CELL DISTRIBUTION WIDTH 13.9 % (11.5-14.5)
[2018-04-23 00:29] LABS: INR 0.9 (0.8-1.1); PROTHROMBIN TIME PATIENT 12.1 SEC (11.7-14.0)
[2018-04-23 00:31] LABS: ANION GAP 6 (6-14); BLOOD UREA NITROGEN 15 mg/dL (7-20); BUN/CREATININE RATIO 21 (6-20); CALCIUM 9.1 mg/dL (8.5-10.1); CARBON DIOXIDE 28 mmol/L (21-32); CHLORIDE 107 mmol/L (98-107); CREATININE 0.7 mg/dL (0.6-1.0); GFR 87.2; GLUCOSE 93 mg/dL (70-99); POTASSIUM 4.5 mmol/L (3.5-5.1); SODIUM 141 mmol/L (136-145)
[2018-04-23 00:35] LABS: D-DIMER < 0.27 ug/mlFEU (0.00-0.50)
[2018-04-23 00:37] LABS: ALBUMIN 3.4 g/dL (3.4-5.0); ALBUMIN/GLOBULIN RATIO 0.9 (1.0-1.7); ALK PHOS 64 U/L (46-116); ALT (SGPT) 23 U/L (14-59); AST (SGOT) 23 U/L (15-37); LIPASE 100 U/L (73-393); MAGNESIUM 2.2 mg/dL (1.8-2.4); TOTAL BILIRUBIN 0.3 mg/dL (0.2-1.0); TOTAL PROTEIN 7.3 g/dL (6.4-8.2)
[2018-04-23 00:40] LABS: TROPONINI < 0.017 ng/mL (0.000-0.055)
[2018-04-23 00:45] LABS: CKMB INDEX 0.6 % (0-4); CKMB MASS 0.9 ng/mL (0.0-3.6); CREATINE KINASE 156 U/L (26-192)
[2018-04-23 00:45] LABS: NT-PRO BNP 29 pg/mL (0-124)
[2018-04-23] MEDS ORDERED: fentaNYL PF VIAL 100 MCG/2 ML VIAL (01:04)
[2018-04-23] MEDS: fentaNYL PF VIAL 100 MCG/2 ML VIAL IV (01:18)
[2018-04-23] MEDS: IV NORMAL SALINE 1000ML BAG 1,000 ML IV (01:45)
[2018-04-23] MEDS ORDERED: HYDROcodone/APAP 5/325MG 1 TAB TABLET PO (03:15)
[2018-04-23] MEDS: HYDROcodone/APAP 5/325MG 1 TAB TABLET PO (04:20)
[2018-04-23 06:28] LABS: TROPONINI < 0.017 ng/mL (0.000-0.055)
[2018-04-23 09:24] LABS: TROPONINI < 0.017 ng/mL (0.000-0.055)
[2018-04-23] MEDS: REGADENOSON 0.4 MG/5 ML DISP.SYRIN. IV (10:37)
[2018-04-23] MEDS ORDERED: ZOLPIDEM 5 MG TABLET. PO (10:45)
[2018-04-23] MEDS: ALPRAZolam 0.5 MG TABLET PO (11:08)
[2018-04-23] MEDS: LEVOTHYROXINE 50 MCG TABLET PO (11:08)
[2018-04-23] MEDS: DULoxetine HCL 30 MG CAPSULE.DR PO (11:08)
[2018-04-23] MEDS ORDERED: oxyCODONE/APAP 10/325 1 TAB TABLET PO (12:30)
[2018-04-23] MEDS: CYCLOBENZAPRINE 10 MG TABLET. PO (13:29)
[2018-04-23] MEDS: GABAPENTIN 400 MG CAPSULE. PO (13:29)
[2018-04-23] MEDS: MORPHINE SULFATE 2 MG/ML DISP.SYRIN. IV (13:32)
[2018-04-23] MEDS ORDERED: clonazePAM 0.5 MG TABLET PO (21:00)
[2018-04-23] MEDS ORDERED: FAMOTIDINE 20 MG TABLET. PO (21:00)
== END 2018-04-23 15:00 | disposition home or self-care (01) | DRG 880 ==
LOC: 2 NORTH 04-23 02:00 → ER 21:58
DX: F41.9 Anxiety disorder, unspecified (principal); R07.89 Other chest pain; E78.5 Hyperlipidemia, unspecified; I10 Essential (primary) hypertension; F32.9 Major depressive disorder, single episode, unspecified; R20.2 Paresthesia of skin; Z89.202 Acquired absence of left upper limb, unspecified level; Z82.49 Family history of ischemic heart disease and other diseases of the circulatory system; Z85.72 Personal history of non-Hodgkin lymphomas; Z87.19 Personal history of other diseases of the digestive system; Z87.891 Personal history of nicotine dependence; Z89.512 Acquired absence of left leg below knee; Z89.612 Acquired absence of left leg above knee; Z90.49 Acquired absence of other specified parts of digestive tract; Z87.01 Personal history of pneumonia (recurrent); Z87.81 Personal history of (healed) traumatic fracture; Z88.8 Allergy status to other drugs, medicaments and biological substances; Z87.820 Personal history of traumatic brain injury
CPT/HCPCS: 36415; 71045; 78452; 80053; 82553; 83690; 83735; 83880; 84484; 85025; 85379; 85610; 93005; 93017; 96374; 96375; 96376; 99285; 99285-25; A9500; J2060; J2270; J2785; J3010; J7030

== ENCOUNTER 2018-05-06 08:30 | Inpatient (IN) | payer OTHER ==
[2018-05-06 09:08] LABS: FECAL OB PT POSITIVE (NEG)
[2018-05-06 09:09] LABS: NEG OBC FOB NEG; POS OBC FOB POS
[2018-05-06] MEDS ORDERED: CONTRAST GIVEN. MC (09:15)
[2018-05-06] MEDS: IV NORMAL SALINE 1000ML BAG 1,000 ML IV ×3 (09:37→16:22)
[2018-05-06 09:48] LABS: ADD MAN DIFF? NO
[2018-05-06 09:50] LABS: BASO % 0 % (0-3); EOS # 0.2 x10^3/uL (0.0-0.7); EOS % 3 % (0-3); HEMOGLOBIN 13.8 g/dL (12.0-15.5); LYMPH # 1.3 x10^3/uL (1.0-4.8); LYMPH % 21 % (24-48); MEAN CORPUSCULAR HEMOGLOBIN 31 pg (25-35); MEAN CORPUSCULAR HGB CONC 34 g/dL (31-37); MEAN CORPUSCULAR VOLUME 93 fL (79-100); MONO # 0.6 x10^3/uL (0.0-1.1); MONO % 10 % (0-9); NEUT # 4.1 x10^3uL (1.8-7.7); NEUT % 65 % (31-73); PLATELET COUNT 372 x10^3/uL (140-400); RED BLOOD COUNT 4.43 x10^6/uL (3.50-5.40); RED CELL DISTRIBUTION WIDTH 13.4 % (11.5-14.5); WHITE BLOOD COUNT 6.3 x10^3/uL (4.0-11.0)
[2018-05-06 10:04] LABS: ANION GAP 5 (6-14); BLOOD UREA NITROGEN 16 mg/dL (7-20); BUN/CREATININE RATIO 23 (6-20); CALCIUM 8.9 mg/dL (8.5-10.1); CARBON DIOXIDE 26 mmol/L (21-32); CHLORIDE 104 mmol/L (98-107); CREATININE 0.7 mg/dL (0.6-1.0); GFR 87.2; GLUCOSE 92 mg/dL (70-99); POTASSIUM 4.1 mmol/L (3.5-5.1); SODIUM 135 mmol/L (136-145)
[2018-05-06 10:09] LABS: ALBUMIN 3.5 g/dL (3.4-5.0); ALBUMIN/GLOBULIN RATIO 0.9 (1.0-1.7); ALK PHOS 69 U/L (46-116); ALT (SGPT) 18 U/L (14-59); AST (SGOT) 19 U/L (15-37); LIPASE 94 U/L (73-393); TOTAL BILIRUBIN 0.5 mg/dL (0.2-1.0); TOTAL PROTEIN 7.6 g/dL (6.4-8.2)
[2018-05-06] MEDS: IOHEXOL 300 MG/ML 100ML VIAL. IV (10:23)
[2018-05-06] MEDS: ONDANSETRON PF 4 MG/2 ML VIAL. IV (10:33)
[2018-05-06] MEDS: fentaNYL PF VIAL 100 MCG/2 ML VIAL IV (10:35)
[2018-05-06] MEDS: MORPHINE SULFATE 4 MG/ML DISP.SYRIN. IV ×3 (11:46→20:26)
[2018-05-06 12:18] LABS: BILIRUBIN,URINE NEGATIVE (NEG); CLARITY,URINE CLEAR; COLOR,URINE YELLOW; GLUCOSE,URINE NEGATIVE (NEG); NITRITE,URINE NEGATIVE (NEG); PH,URINE 5.5; PROTEIN,URINE NEGATIVE (NEG-TRACE); UROBILINOGEN,URINE 0.2 mg/dL (0.2 mg/dL)
[2018-05-06] MEDS ORDERED: ACETAMINOPHEN 325 MG TABLET. PO (12:30)
[2018-05-06] MEDS ORDERED: ONDANSETRON PF 4 MG/2 ML VIAL. IV (12:30)
[2018-05-06 12:31] LABS: BACTERIA,URINE FEW /HPF (0-FEW); RBC,URINE 0 /HPF (0-2); SQUAMOUS EPITHELIAL CELL,UR MOD /LPF; WBC,URINE 0 /HPF (0-4)
[2018-05-06] MEDS: GABAPENTIN 400 MG CAPSULE. PO (20:24)
[2018-05-06] MEDS: DULoxetine HCL 30 MG CAPSULE.DR PO (20:24)
[2018-05-07] MEDS: ALPRAZolam 0.5 MG TABLET PO ×2 (00:18→20:39)
[2018-05-07] MEDS: HYDROmorphone 2 MG TABLET PO ×2 (00:18→09:47)
[2018-05-07] MEDS: ZOLPIDEM 5 MG TABLET. PO (00:22)
[2018-05-07 01:12] LABS: C DIFF BY PCR Negative (Negative)
[2018-05-07] MEDS: IV NORMAL SALINE 1000ML BAG 1,000 ML IV (04:45)
[2018-05-07] MEDS: LEVOTHYROXINE 50 MCG TABLET PO (06:27)
[2018-05-07] MEDS: PANTOPRAZOLE 40 MG TABLET.DR. PO (08:04)
[2018-05-07] MEDS: MORPHINE SULFATE 4 MG/ML DISP.SYRIN. IV ×3 (08:05→20:40)
[2018-05-07] MEDS: GABAPENTIN 400 MG CAPSULE. PO ×3 (09:47→20:39)
[2018-05-07] MEDS: DULoxetine HCL 30 MG CAPSULE.DR PO ×2 (09:47→20:39)
[2018-05-07 09:58] LABS: ADD MAN DIFF? NO
[2018-05-07 10:06] LABS: BASO % 0 % (0-3); EOS # 0.1 x10^3/uL (0.0-0.7); EOS % 3 % (0-3); HEMATOCRIT 33.5 % (36.0-47.0); HEMOGLOBIN 11.3 g/dL (12.0-15.5); LYMPH # 1.4 x10^3/uL (1.0-4.8); LYMPH % 36 % (24-48); MEAN CORPUSCULAR HEMOGLOBIN 32 pg (25-35); MEAN CORPUSCULAR HGB CONC 34 g/dL (31-37); MEAN CORPUSCULAR VOLUME 94 fL (79-100); MONO # 0.4 x10^3/uL (0.0-1.1); MONO % 11 % (0-9); NEUT # 1.9 x10^3uL (1.8-7.7); NEUT % 49 % (31-73); PLATELET COUNT 295 x10^3/uL (140-400); RED BLOOD COUNT 3.57 x10^6/uL (3.50-5.40); RED CELL DISTRIBUTION WIDTH 13.7 % (11.5-14.5); WHITE BLOOD COUNT 3.9 x10^3/uL (4.0-11.0)
[2018-05-07 10:35] LABS: ALBUMIN 2.8 g/dL (3.4-5.0); ALBUMIN/GLOBULIN RATIO 0.8 (1.0-1.7); ALT (SGPT) 90 U/L (14-59); ANION GAP 8 (6-14); AST (SGOT) 85 U/L (15-37); BLOOD UREA NITROGEN 6 mg/dL (7-20); BUN/CREATININE RATIO 9 (6-20); CALCIUM 7.8 mg/dL (8.5-10.1); CARBON DIOXIDE 22 mmol/L (21-32); CHLORIDE 109 mmol/L (98-107); CREATININE 0.7 mg/dL (0.6-1.0); GFR 87.2; GLUCOSE 86 mg/dL (70-99); POTASSIUM 3.7 mmol/L (3.5-5.1); SODIUM 139 mmol/L (136-145); TOTAL BILIRUBIN 1.9 mg/dL (0.2-1.0); TOTAL PROTEIN 6.2 g/dL (6.4-8.2)
[2018-05-07 10:49] LABS: ALK PHOS 109 U/L (46-116)
[2018-05-08] MEDS: MORPHINE SULFATE 4 MG/ML DISP.SYRIN. IV ×5 (03:28→23:30)
[2018-05-08] MEDS: LEVOTHYROXINE 50 MCG TABLET PO (06:00)
[2018-05-08] MEDS: PANTOPRAZOLE 40 MG TABLET.DR. PO (07:30)
[2018-05-08] MEDS: GABAPENTIN 400 MG CAPSULE. PO ×3 (09:00→20:37)
[2018-05-08] MEDS: DULoxetine HCL 30 MG CAPSULE.DR PO ×2 (09:00→20:37)
[2018-05-08] MEDS: BARIUM SULFATE 60% 355 ML SUSP PO (10:13)
[2018-05-08] MEDS: ALPRAZolam 0.5 MG TABLET PO ×2 (10:30→20:37)
[2018-05-08] MEDS: ZOLPIDEM 5 MG TABLET. PO (20:37)
[2018-05-09] MEDS ORDERED: PROCHLORPERAZINE 10 MG/2 ML VIAL. IM (04:15)
[2018-05-09] MEDS: MORPHINE SULFATE 2 MG/ML DISP.SYRIN. IV ×3 (04:15→21:25)
[2018-05-09] MEDS ORDERED: PROCHLORPERAZINE 10 MG/2 ML VIAL. IV (04:30)
[2018-05-09] MEDS: LEVOTHYROXINE 50 MCG TABLET PO (05:28)
[2018-05-09] MEDS: IV RINGERS,LACTATED 1000ML 1,000 ML IV (07:00)
[2018-05-09] MEDS: PANTOPRAZOLE 40 MG TABLET.DR. PO (07:30)
[2018-05-09 08:22] LABS: ADD MAN DIFF? NO
[2018-05-09 08:28] LABS: BASO % 1 % (0-3); EOS # 0.1 x10^3/uL (0.0-0.7); EOS % 4 % (0-3); HEMATOCRIT 35.2 % (36.0-47.0); HEMOGLOBIN 12.3 g/dL (12.0-15.5); LYMPH # 1.6 x10^3/uL (1.0-4.8); LYMPH % 47 % (24-48); MEAN CORPUSCULAR HEMOGLOBIN 32 pg (25-35); MEAN CORPUSCULAR HGB CONC 35 g/dL (31-37); MEAN CORPUSCULAR VOLUME 92 fL (79-100); MONO # 0.3 x10^3/uL (0.0-1.1); MONO % 10 % (0-9); NEUT # 1.3 x10^3uL (1.8-7.7); NEUT % 39 % (31-73); PLATELET COUNT 327 x10^3/uL (140-400); RED BLOOD COUNT 3.83 x10^6/uL (3.50-5.40); RED CELL DISTRIBUTION WIDTH 13.5 % (11.5-14.5); WHITE BLOOD COUNT 3.4 x10^3/uL (4.0-11.0)
[2018-05-09 08:50] LABS: ALBUMIN 2.8 g/dL (3.4-5.0); ALBUMIN/GLOBULIN RATIO 0.8 (1.0-1.7); ALK PHOS 188 U/L (46-116); ALT (SGPT) 60 U/L (14-59); ANION GAP 8 (6-14); AST (SGOT) 33 U/L (15-37); BLOOD UREA NITROGEN 4 mg/dL (7-20); BUN/CREATININE RATIO 6 (6-20); CALCIUM 7.9 mg/dL (8.5-10.1); CARBON DIOXIDE 24 mmol/L (21-32); CHLORIDE 108 mmol/L (98-107); CREATININE 0.7 mg/dL (0.6-1.0); GFR 87.2; GLUCOSE 88 mg/dL (70-99); POTASSIUM 3.4 mmol/L (3.5-5.1); SODIUM 140 mmol/L (136-145); TOTAL BILIRUBIN 0.5 mg/dL (0.2-1.0); TOTAL PROTEIN 6.5 g/dL (6.4-8.2)
[2018-05-09] MEDS: DULoxetine HCL 30 MG CAPSULE.DR PO ×2 (09:00→15:28)
[2018-05-09] MEDS: GABAPENTIN 400 MG CAPSULE. PO ×3 (09:00→21:25)
[2018-05-09] MEDS ORDERED: LIDOCAINE 2% PF Vial for OR 5 ML VIAL. (13:29)
[2018-05-09] MEDS ORDERED: PROPOFOL 20 ML IV (13:29)
[2018-05-09 13:42] LABS: SEDIMENTATION RATE 40 (0-25)
[2018-05-09] MEDS: POTASSIUM CHLORIDE 20 MEQ TABLET.ER. PO (15:28)
[2018-05-09] MEDS: LORazepam 0.5 MG TABLET PO (16:57)
[2018-05-10] MEDS: MORPHINE SULFATE 2 MG/ML DISP.SYRIN. IV ×5 (02:52→23:37)
[2018-05-10] MEDS: LEVOTHYROXINE 50 MCG TABLET PO (05:45)
[2018-05-10] MEDS: ALPRAZolam 0.5 MG TABLET PO ×2 (05:52→19:57)
[2018-05-10] MEDS: GABAPENTIN 400 MG CAPSULE. PO ×3 (09:36→21:00)
[2018-05-10] MEDS: PANTOPRAZOLE 40 MG TABLET.DR. PO (09:36)
[2018-05-10] MEDS: DULoxetine HCL 30 MG CAPSULE.DR PO ×2 (09:36→21:00)
[2018-05-10] MEDS: POTASSIUM CHLORIDE 20 MEQ TABLET.ER. PO (09:37)
[2018-05-10] MEDS ORDERED: LOPERAMIDE 2 MG CAPSULE PO (11:45)
[2018-05-10] MEDS: ZOLPIDEM 5 MG TABLET. PO ×2 (21:34→23:37)
[2018-05-11] MEDS: ALPRAZolam 0.5 MG TABLET PO ×4 (03:12→22:19)
[2018-05-11] MEDS: PANTOPRAZOLE 40 MG TABLET.DR. PO (06:18)
[2018-05-11] MEDS: LEVOTHYROXINE 50 MCG TABLET PO (06:18)
[2018-05-11] MEDS: MORPHINE SULFATE 2 MG/ML DISP.SYRIN. IV ×3 (06:19→13:05)
[2018-05-11] MEDS: DULoxetine HCL 30 MG CAPSULE.DR PO ×2 (08:39→21:03)
[2018-05-11] MEDS: POTASSIUM CHLORIDE 20 MEQ TABLET.ER. PO (08:39)
[2018-05-11] MEDS: GABAPENTIN 400 MG CAPSULE. PO ×3 (08:39→21:03)
[2018-05-11] MEDS: MORPHINE SULFATE 4 MG/ML DISP.SYRIN. IM (18:04)
[2018-05-11] MEDS: ZOLPIDEM 5 MG TABLET. PO ×2 (21:03→23:56)
[2018-05-11] MEDS: MORPHINE SULFATE 4 MG/ML DISP.SYRIN. IV (22:19)
[2018-05-12] MEDS: MORPHINE SULFATE 4 MG/ML DISP.SYRIN. IV ×5 (02:10→21:02)
[2018-05-12] MEDS: LEVOTHYROXINE 50 MCG TABLET PO (05:49)
[2018-05-12 08:12] LABS: BILIRUBIN,URINE NEGATIVE (NEG); CLARITY,URINE CLEAR; COLOR,URINE YELLOW; GLUCOSE,URINE NEGATIVE (NEG); NITRITE,URINE NEGATIVE (NEG); PROTEIN,URINE NEGATIVE (NEG-TRACE); UROBILINOGEN,URINE 0.2 mg/dL (0.2 mg/dL)
[2018-05-12] MEDS: GABAPENTIN 400 MG CAPSULE. PO ×3 (08:34→21:01)
[2018-05-12] MEDS: PANTOPRAZOLE 40 MG TABLET.DR. PO (08:35)
[2018-05-12] MEDS: DULoxetine HCL 30 MG CAPSULE.DR PO ×2 (08:35→21:01)
[2018-05-12 08:37] LABS: BACTERIA,URINE FEW /HPF (0-FEW)
[2018-05-12] MEDS: POTASSIUM CHLORIDE 20 MEQ TABLET.ER. PO (08:42)
[2018-05-12] MEDS: ALPRAZolam 0.5 MG TABLET PO ×3 (09:25→19:21)
[2018-05-12 12:26] LABS: HEMATOCRIT 38.6 % (36.0-47.0); HEMOGLOBIN 13.4 g/dL (12.0-15.5); MEAN CORPUSCULAR HEMOGLOBIN 32 pg (25-35); MEAN CORPUSCULAR HGB CONC 35 g/dL (31-37); MEAN CORPUSCULAR VOLUME 92 fL (79-100); PLATELET COUNT 400 x10^3/uL (140-400); RED CELL DISTRIBUTION WIDTH 14.2 % (11.5-14.5)
[2018-05-12 12:37] LABS: ANION GAP 5 (6-14); BLOOD UREA NITROGEN 7 mg/dL (7-20); BUN/CREATININE RATIO 10 (6-20); CALCIUM 8.6 mg/dL (8.5-10.1); CARBON DIOXIDE 26 mmol/L (21-32); CHLORIDE 103 mmol/L (98-107); CREATININE 0.7 mg/dL (0.6-1.0); GFR 87.2; GLUCOSE 94 mg/dL (70-99); POTASSIUM 4.5 mmol/L (3.5-5.1); SODIUM 134 mmol/L (136-145)
[2018-05-12 12:43] LABS: ALBUMIN/GLOBULIN RATIO 0.7 (1.0-1.7); ALK PHOS 152 U/L (46-116); ALT (SGPT) 38 U/L (14-59); AST (SGOT) 24 U/L (15-37); TOTAL BILIRUBIN 0.2 mg/dL (0.2-1.0); TOTAL PROTEIN 7.1 g/dL (6.4-8.2)
[2018-05-12] MEDS: cefTRIAXone IV Push 1 GM VIAL. IVP (14:06)
[2018-05-12] MEDS: LACTOBACILLUS RHAMNOSUS GG 1 CAPSULE. PO (21:01)
[2018-05-12] MEDS: ZOLPIDEM 5 MG TABLET. PO ×2 (21:01→21:59)
[2018-05-13] MEDS: MORPHINE SULFATE 4 MG/ML DISP.SYRIN. IV ×3 (01:17→09:38)
[2018-05-13] MEDS: ALPRAZolam 0.5 MG TABLET PO ×2 (03:50→12:10)
[2018-05-13] MEDS: LEVOTHYROXINE 50 MCG TABLET PO (05:26)
[2018-05-13] MEDS: LACTOBACILLUS RHAMNOSUS GG 1 CAPSULE. PO (07:50)
[2018-05-13] MEDS: GABAPENTIN 400 MG CAPSULE. PO (07:51)
[2018-05-13] MEDS: PANTOPRAZOLE 40 MG TABLET.DR. PO (07:51)
[2018-05-13] MEDS: POTASSIUM CHLORIDE 20 MEQ TABLET.ER. PO (07:51)
[2018-05-13] MEDS: DULoxetine HCL 30 MG CAPSULE.DR PO (07:51)
[2018-05-15 07:08] LABS: CRYPTOSPORIDIUM EIA Negative
== END 2018-05-13 12:19 | disposition home or self-care (01) | DRG 392 ==
LOC: 5 NORTH 14:40 → ER 08:30 → 5 NORTH 12:16
PROC: 0DB68ZX Excision of Stomach, Via Natural or Artificial Opening Endoscopic, Diagnostic (ICD-10-PCS; principal; 2018-05-09 13:44)
DX: K21.0 Gastro-esophageal reflux disease with esophagitis (principal); D64.9 Anemia, unspecified; A08.4 Viral intestinal infection, unspecified; D18.03 Hemangioma of intra-abdominal structures; D72.819 Decreased white blood cell count, unspecified; E03.9 Hypothyroidism, unspecified; E78.5 Hyperlipidemia, unspecified; E86.0 Dehydration; F32.9 Major depressive disorder, single episode, unspecified; F41.9 Anxiety disorder, unspecified; R74.0 Nonspecific elevation of levels of transaminase and lactic acid dehydrogenase [LDH]; B34.9 Viral infection, unspecified; I10 Essential (primary) hypertension; N87.9 Dysplasia of cervix uteri, unspecified; R94.5 Abnormal results of liver function studies; R33.9 Retention of urine, unspecified; K58.0 Irritable bowel syndrome with diarrhea; K64.9 Unspecified hemorrhoids; G89.29 Other chronic pain; Z90.49 Acquired absence of other specified parts of digestive tract; Z82.49 Family history of ischemic heart disease and other diseases of the circulatory system; Z87.01 Personal history of pneumonia (recurrent); Z85.72 Personal history of non-Hodgkin lymphomas; Z89.612 Acquired absence of left leg above knee; Z88.6 Allergy status to analgesic agent; Z88.1 Allergy status to other antibiotic agents; Z88.5 Allergy status to narcotic agent; Z86.010 Personal history of colon polyps
CPT/HCPCS: 36415; 73560; 74177; 74250; 76856; 80053; 81001; 82274; 83690; 85025; 85027; 85651; 87045; 87086; 87205; 87324; 87328; 88305; 88342; 96361; 96374; 96375; 99285; 99285-25; J0696; J2001; J2270; J2405; J2704; J3010; J7030; J7120; Q9967

== ENCOUNTER 2018-11-30 00:53 | Observation (INO) | payer OTHER ==
[~2018-11-30] VITALS: Ht 154.9 cm; Wt 80.4 kg
[~2018-11-30 00:53] MED LIST changes: +ALBU2.5V8 IH; +CEPH-263 PO; +CLON0.5T11 PO; +CLON1TAB11; -CLON1TAB3; -GABA-587 PO; +GABA-689 PO; +GABA800T5 PO; -IPRA3AMP NEB; +IPRA3AMP29 NEB; +LACT1TAB24 PO; -LEVO50TA5; +LEVO50TA5 PO; +LEVO75TA5 PO; +LOSA-73 PO; +LOSA100T14 PO; -LOSA50TA2 PO; +METR500T PO; -OXYC15TA60; +OXYC15TA61; +OXYC5TAB4 PO; -OXYC5TAB95 PO; +POTA20TA4 PO; -PRAM0.25; +PRAM0.25 PO; -PROAIR HFA8.5 GM IH; +Pantoprazole PO; +ZOLP10TA4 PO; +ZOLP5TAB5 PO
[2018-11-30] MEDS ORDERED: IV NORMAL SALINE 1000ML BAG 1,000 ML IV ONE (01:30)
[2018-11-30] MEDS ORDERED: fentaNYL PF VIAL 100 MCG/2 ML VIAL IV ONE (01:30)
[2018-11-30] MEDS ORDERED: NITROGLYCERIN OINT 1 GM PACKET. ONE (01:48)
[2018-11-30] MEDS ORDERED: fentaNYL PF VIAL 100 MCG/2 ML VIAL ONE (01:48)
[2018-11-30] MEDS ORDERED: fentaNYL PF VIAL 100 MCG/2 ML VIAL IM ONE (02:00)
[2018-11-30] MEDS ORDERED: NITROGLYCERIN OINT 1 GM PACKET. TP ONE (02:00)
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
[2018-11-30 02:16] LABS: BASO # 0.1 x10^3/uL (0.0-0.2); BASO % 1 % (0-3); EOS # 0.2 x10^3/uL (0.0-0.7); EOS % 2 % (0-3); HEMATOCRIT 43.5 % (36.0-47.0); HEMOGLOBIN 14.8 g/dL (12.0-15.5); LYMPH % 35 % (24-48); MEAN CORPUSCULAR HEMOGLOBIN 31 pg (25-35); MEAN CORPUSCULAR HGB CONC 34 g/dL (31-37); MEAN CORPUSCULAR VOLUME 91 fL (79-100); MONO # 0.7 x10^3/uL (0.0-1.1); MONO % 9 % (0-9); NEUT # 4.6 x10^3uL (1.8-7.7); NEUT % 54 % (31-73); PLATELET COUNT 346 x10^3/uL (140-400); RED BLOOD COUNT 4.77 x10^6/uL (3.50-5.40); RED CELL DISTRIBUTION WIDTH 13.8 % (11.5-14.5); WHITE BLOOD COUNT 8.5 x10^3/uL (4.0-11.0)
[2018-11-30 02:49] LABS: CALCIUM 9.5 mg/dL (8.5-10.1); CREATININE 0.7 mg/dL (0.6-1.0); GFR 87.2; POTASSIUM 3.8 mmol/L (3.5-5.1)
[2018-11-30 02:53] LABS: PROTHROMBIN TIME PATIENT 12.3 SEC (11.7-14.0)
[2018-11-30 02:55] LABS: ALBUMIN 3.7 g/dL (3.4-5.0); ALBUMIN/GLOBULIN RATIO 0.9 (1.0-1.7); MAGNESIUM 2.1 mg/dL (1.8-2.4); TOTAL BILIRUBIN 0.1 mg/dL (0.2-1.0); TOTAL PROTEIN 7.6 g/dL (6.4-8.2)
[2018-11-30 02:57] LABS: D-DIMER 0.29 ug/mlFEU (0.00-0.50)
[2018-11-30] MEDS ORDERED: ONDANSETRON ODT 4 MG TAB.RAPDIS. PO ONE (03:00)
[2018-11-30] MEDS ORDERED: MORPHINE SULFATE 4 MG/ML VIAL. IM ONE (03:00)
[2018-11-30 03:24] LABS: CREATINE KINASE 63 U/L (26-192)
[2018-11-30] MEDS ORDERED: ONDANSETRON ODT 4 MG TAB.RAPDIS. PO PRN (04:45)
[2018-11-30] MEDS ORDERED: ONDANSETRON PF 4 MG/2 ML VIAL. IV PRN (04:45)
[2018-11-30] MEDS: MORPHINE SULFATE 4 MG/ML VIAL. IM PRN ×2 (05:07→09:33)
--- NOTE | 2018-11-30 05:18 | RAD ---
Chest, PA and Lateral: Technique: PA and lateral views of the chest were obtained. History: Chest pain. Comparison: 04/12/2018. Findings: The heart and pulmonary vasculature appear within normal limits. The lungs are clear. The pleural margins are clear. Surgical clips project in the left jugular. Left humerus hardware again identified. Impression: No acute chest process is seen. Electronically signed by: Uche Crabtree MD (11/30/2018 5:13 AM) [facility]
[2018-11-30 05:38] VITALS: BP 103/62
[2018-11-30 07:00] VITALS: BP 107/69
[2018-11-30] MEDS ORDERED: PARO30TA45 PO (07:52)
[2018-11-30] MEDS ORDERED: PRAM0.255 PO (07:56)
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
[2018-11-30] MEDS ORDERED: PRAMIPEXOLE 0.25 MG TABLET. PO PRN (09:00)
[2018-11-30] MEDS: PARoxetine 10 MG TABLET PO SCH (09:37)
[2018-11-30] MEDS: ASPIRIN CHEWABLE 81 MG TABLET. PO SCH (09:39)
[2018-11-30 11:00] VITALS: BP 114/72
[2018-11-30] MEDS ORDERED: predniSONE 20 MG TABLET PO SCH (11:15)
--- NOTE | 2018-11-30 11:30 | NUR ---
Midline Pre-Insertion Note Allergies and reactions codeine, doxycycline, ibuprofen, tromethamine, vancomycin INR 0.9 BUN 21 Cr 0.7 Platelets 346 Blood culture done no blood culture results Order Verified yes Consent signed yes Previous PICC placement yes Past Medical/Surgical history and current diagnosis reviewed yes Patient Medical /Surgical History Related to PICC line placement Cancer Chemotherapy Past central line or venous access device placement Special considerations for Mid- line placement Dermatitis Midline placement indication Poor peripheral intravenous access name of PICC Nurse Luanne Crawford RN Addendum: 11/30/18 at 1204 by QUEENIE CRAWFORD RN Amended: Links added.
[2018-11-30] MEDS: BUDESONIDE 0.5 MG/2 ML NEBU. NEB SCH ×2 (11:45→19:10)
--- NOTE | 2018-11-30 12:00 | NUR ---
Midline Insertion Note Procedure: Following complete explanation of the Midline placement procedure including the indications, risks, and potential complications, informed consent was obtained. The possibility for infection was discussed along with signs, symptoms, and prevention. All the questions were answered. Written and verbal patient education was provided. Hand hygiene performed. Standardized central line checklist was utilized. The patient was placed in the supine position, the arm was prepped with chlorhexidine and patient draped with maximum sterile barrier. 2 mL 1% lidocaine was infiltrated into the skin to provide local anesthesia. A thorough assessment of Right upper extremity completed. Using real-time ultrasound guidance and standardized micro puncture set, the Basilic vein was punctured and a peel away sheath was placed using the modified Seldinger technique. A tip location device was used to ensure adequate catheter placement. The catheter was secured using a securement device and an antimicrobial patch was applied directly on the insertion site followed by a transparent dressing. All ports withdraw blood and flush without resistance. Patient tolerated the procedure without apparent complication(s). Single Lumen Power Midline placement successful and uncomplicated. Tip located in the Right Axilla. Complications: none Catheter trimmed at 17cm with 0cm visible at insertion site.
[2018-11-30] MEDS: ENOXAPARIN 40 MG/0.4 ML SYRINGE. SQ SCH (12:32)
[2018-11-30] MEDS: methylPREDNISolone SOD SUCC PF 40 MG/ML VIAL. IV SCH ×2 (12:32→20:22)
[2018-11-30] MEDS: traMADol 50 MG TABLET PO PRN ×2 (12:32→19:20)
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
[2018-11-30 15:00] VITALS: BP 114/70
[2018-11-30] MEDS: MORPHINE SULFATE 4 MG/ML VIAL. IV PRN ×2 (15:32→20:23)
[2018-11-30] MEDS: IPRATRPIUM/ALBUTEROL 0.5/2.5MG 3 ML NEBU. NEB SCH ×2 (16:42→19:10)
[2018-11-30 19:14] VITALS: BP 118/64
--- NOTE | 2018-11-30 19:15 | NUR ---
Pt in bed assessment completed vss poc explained. Pt c/o chest discomfort will medicate and continue to monitor pt. Call light in reach.
[2018-11-30] MEDS ORDERED: ZOLPIDEM 5 MG TABLET. PO PRN (21:30)
[2018-11-30 22:36] VITALS: BP 135/66
[2018-12-01] MEDS: MORPHINE SULFATE 4 MG/ML VIAL. IV PRN ×2 (00:30→04:40)
[2018-12-01 03:14] VITALS: BP 144/65
[2018-12-01] MEDS: traMADol 50 MG TABLET PO PRN ×2 (03:22→09:07)
[2018-12-01 05:36] LABS: CHOLESTEROL/HDL RATIO 2.9
[2018-12-01 07:05] VITALS: BP 122/67
[2018-12-01] MEDS: IPRATRPIUM/ALBUTEROL 0.5/2.5MG 3 ML NEBU. NEB SCH ×2 (08:00→11:56)
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
[2018-12-01] MEDS ORDERED: predniSONE 20 MG TABLET PO SCH (09:00)
[2018-12-01] MEDS: PARoxetine 10 MG TABLET PO SCH (09:05)
[2018-12-01] MEDS: ASPIRIN CHEWABLE 81 MG TABLET. PO SCH (09:05)
[2018-12-01] MEDS: ENOXAPARIN 40 MG/0.4 ML SYRINGE. SQ SCH (09:09)
--- NOTE | 2018-12-01 10:29 | EKG ---
[facility] [address] [place] [address] Test Date: 2018-11-30 Test Time: 01:03:26 Pat Name: CORI ZUNIGA Department: Room: 201 1 Gender: F Buffer Operator: : [id number] Requested By: EARL ELIZALDE Order Number: [id number] Reading MD: Eric Ruiz Measurements Intervals Flasher Rate: 119 P: 48 FL: 134 QRS: 41 QRSD: 82 T: 45 QT: 316 QTc: 451 Interpretive Statements SINUS TACHYCARDIA Electronically Signed On 12-05-2018 9:41:20 DEVELOPMENT TECHNICAL LEAD by Eric Ruiz
[2018-12-01 11:16] VITALS: BP 96/48
[2018-12-01] MEDS: BUDESONIDE 0.5 MG/2 ML NEBU. NEB SCH (11:57)
[2018-12-01] MEDS ORDERED: HYDROcodone/APAP 5/325MG 1 TAB TABLET PO PRN (12:00)
[2018-12-01] MEDS ORDERED: HYDR-2761 PO (13:04)
[2018-12-01] MEDS ORDERED: PRED20TA PO (13:04)
[2018-12-01] MEDS ORDERED: PANT20TA2 PO (13:11)
--- NOTE | 2018-12-01 15:35 | NUR ---
Patient discharging to home. Discharge instructions given. [facility] transportation here, escorted patient in a wheelchair off unit.
== END 2018-12-01 15:35 | disposition home or self-care (01) ==
LOC: ER 00:53 → 2 NORTH 04:42
PROVIDERS: ADMIT Internal Medicine; ATTEND Internal Medicine
DX: R07.89 Other chest pain (principal); I10 Essential (primary) hypertension; E78.5 Hyperlipidemia, unspecified; E03.9 Hypothyroidism, unspecified; F31.9 Bipolar disorder, unspecified; K21.9 Gastro-esophageal reflux disease without esophagitis; F17.210 Nicotine dependence, cigarettes, uncomplicated; Z87.442 Personal history of urinary calculi; Z89.612 Acquired absence of left leg above knee; Z90.49 Acquired absence of other specified parts of digestive tract
CPT/HCPCS: 36415; 36569; 71046; 80053; 80061; 82553; 83690; 83735; 83880; 84484; 85025; 85379; 85610; 85651; 85730; 86140; 93005; 94640; 94760; 96372; 96374; 96375; 96376; 99284; G0378; J1650; J2270; J2920; J3010; J7512; J7620; J7626; Q0162; G0379